=== PATIENT | female | born 1945 | race Caucasian/White ===

== ENCOUNTER 2020-01-01 14:23 | Outpatient (CLI) | payer MEDICARE, SELFPAY ==
--- NOTE | ~2020-01-01 | DEXA_ITS ---
Bone Density Report Name: Daisy Davey Age: 74 Sex: Female Ethnicity: White Date of : 1945 Indication: postmenopausal; height loss; hysterectomy; Referring Provider: KAN SINGH Study: Bone densitometry was performed. Exam Date: January 01, 2020 Accession number: [id number] Bone Density: Region BMD T-score Z-score Classification AP Spine (L1, L4) 0.941 -0.9 1.6 Normal Femoral Neck (Left) 0.623 -2.0 0.1 Osteopenia Total Hip (Left) 0.841 -0.8 1.0 Normal Total Hip Bilateral Avg 0.809 -1.1 0.8 Osteopenia Femoral Neck (Right) 0.650 -1.8 0.3 Osteopenia Total Hip (Right) 0.776 -1.4 0.5 Osteopenia World Health Organization criteria for BMD impression classify patients as: Normal (T-score at or above -1.0), Osteopenia (T-score between -1.0 and -2.5), or Osteoporosis (T-score at or below -2.5). 10-year Fracture Risk(1): Major Osteoporotic Fracture 13% Hip Fracture 3.5% Reported Risk Factors: [place] (), Neck BMD=0.623, BMI=31.4 (1) FRAX(R) Version 3.08. Fracture probability calculated for an untreated patient. Fracture probability may be lower if the patient has received treatment. Previous Exams: Region Exam Age BMD T-score BMD Change BMD Change Date g/cm2 vs Baseline vs Previous AP Spine(L1, L4) 01/01/2020 74 0.941 -0.9 -0.084(-8.2%)# -0.068(-6.7%)# 06/03/2010 64 1.009 -0.3 -0.016(-1.6%) -0.016(-1.6%) 05/15/2008 62 1.025 -0.1 Total Hip(Left) 01/01/2020 74 0.841 -0.8 -0.093(-10.0%) -0.039(-4.4%)# 06/03/2010 64 0.880 -0.5 -0.055(-5.9%)* -0.055(-5.9%)* 05/15/2008 62 0.934 -0.1 Total Hip(Right) 01/01/2020 74 0.776 -1.4 -0.131(-14.5%) -0.086(-10.0%) 06/03/2010 64 0.861 -0.7 -0.046(-5.0%)* -0.046(-5.0%)* 05/15/2008 62 0.907 -0.3 *Denotes significance at 95% confidence level, LSC for AP Spine = 0.022 g/cm2, LSC for Total Hip = 0.027 g/cm2 Clinical Information Provided by Patient: Has the following medical conditions: Hysterectomy Patient maximum height was 62 Menopause Age: 48 Onset of menses at age 11 Number of children 6 Impression: The patient has low bone mass, based on the Left Femoral Neck T-score. The patient has an estimated ten-year risk of hip fracture of 3.5% and an estimated ten-year risk of major fracture of 13%, based on the WHO FRAX algorithm. No significant bone loss was observed. Discussion: BONE DENSITY IS LOW AT ONE OR MORE SKELETAL SITES. THE PATIENT'S
== END 2020-01-01 14:24 | disposition home or self-care (01) ==
LOC: ANHIMG 14:26
PROVIDERS: PCP Internal Medicine; Visit Provider Internal Medicine
DX: Z78.0 Asymptomatic menopausal state (principal); M85.852 Other specified disorders of bone density and structure, left thigh; M85.851 Other specified disorders of bone density and structure, right thigh
CPT/HCPCS: 77080

== ENCOUNTER 2020-05-17 21:01 | Emergency (ER) | payer MEDICARE, SELFPAY ==
--- NOTE | ~2020-05-17 | XR_ITS ---
EXAMINATION: XR hip RT 2V w AP pelvis DATE: 05/17/2020 21:26 INDICATION: Posterior right hip pain TECHNIQUE: Anteroposterior view of the pelvis and anteroposterior and frog-leg lateral views of the r ight hip were obtained. COMPARISON: CT abdomen and pelvis dated 01/25/2011 FINDINGS: Alignment is normal. No fracture or suspected avascular necrosis. Mild bilateral hip osteoarthritis. Moderate lumbar spondylosis with anterior and posterior fusion at L4-L5. IMPRESSION: 1. Mild bilateral hip osteoarthritis. No acute osseous abnormality. Reviewed, dictated and finalized at location A.
[2020-05-17 21:04] VITALS: PULSE 57; RESP 16; TEMP 36.8; O2SAT 99
--- NOTE | 2020-05-17 21:51 | ED.LOWEXIN ---
HPI - Extremity Injury (Lower) General Chief Complaint: Extremity Injury, Lower Stated Complaint: right hip pain Time Seen by Provider: 05/17/20 21:13 History of Present Illness HPI Narrative: Patient presents to the ER via her for right hip pain. She frequently has right hip pain and takes Aleve for that. Tolu she was sitting on her phone when her right hip pain became severe to the point that she could not get up with it. She said the pain was 8 out of 10. She said the pain is now 2-3 out of 10, but still has difficulty rising from the chair. She has an orthopedic surgeon that replaced her right knee, when the arthritis became [id number]. She has not been sick recently no fever cough cold or chills. Does not smoke drink alcohol or do drugs. Surgical history includes right knee replacement. Related Data Home Medications Medication Instructions Recorded Confirmed alendronate 70 mg tablet 70 mg PO WEEKLY 04/16/20 04/16/20 calcium carbonate 500 mg calcium 1,000 mg PO DAILY tablet 04/16/20 (1,250 mg) tablet cholecalciferol (vitamin D3) 25 25 mcg PO DAILY 05/14/20 mcg (1,000 unit) capsule Allergies Allergy/AdvReac Type Severity Reaction Status Date / Time Cephalosporins Allergy Severe RASH, Verified 05/17/20 21:50 ITCHEY Sulfa (Sulfonamide Allergy Severe RASH, DIFF Verified 05/17/20 21:50 Antibiotics) BREATHING sulfamethoxazole Allergy Severe RASH, DIFF Verified 05/17/20 21:50 BREATHING clindamycin Allergy Unknown Unknown Verified 05/17/20 21:50 metronidazole Allergy Unknown Unknown Verified 05/17/20 21:50 sulfamethizole Allergy Unknown Unknown Verified 05/17/20 21:50 sulfanilamide Allergy Unknown Unknown Verified 05/17/20 21:50 trimethoprim Allergy Unknown Unknown Verified 05/17/20 21:50 Review of Systems Review of Systems: Narrative: CONSTITUTIONAL: Denies fever, chills, or sweats. EYES: Denies visual changes, redness, or discharge. ENT: Denies rhinorrhea, congestion, sore throat, or otalgia. CARDIOVASCULAR: Denies chest pain, palpitations, or edema. RESPIRATORY: Denies cough or dyspnea. GASTROINTESTINAL: Denies abdominal pain, nausea, vomiting, or diarrhea. GENITOURINARY: Denies dysuria or hematuria. SKIN: Denies rash or itching. MUSCULOSKELETAL: Denies back pain, but has right hip pain NEUROLOGIC: Denies headache, numbness, or weakness. . PMFSH Past Medical History Medical History (Updated 05/17/20 @ 21:55 by Agatha Giraldo MD) Osteoarthritis Surgical History Surgical History (Updated 05/17/20 @ 21:54 by Agatha Giraldo MD) History of right knee joint replacement Family History Family History (Updated 02/10/17 @ 23:56 by DOCTOR UNKNOWN) Mother Family history of osteoporosis Family history of malignant neoplasm of thyroid Family history of heart disease in male family member before age 55 Family history of congestive heart failure, Onset Age: 79 Patient's mother is Grandparent Family history of congestive heart failure Diabetes mellitus Sibling Patient's brother is in good health Family history of hypothyroidism Father Family history of lung cancer, Onset Age: 80 Patient's father is Social History Social History (Updated 05/17/20 @ 21:54 by Agatha Giraldo MD) Smoking status: Never smoker Alcohol intake: never Substance use: never Exam Narrative: Exam Narrative: GENERAL: Well-appearing, well-nourished, and in no acute distress. Pain with sitting and getting up. HEAD: Normocephalic, atraumatic. EYES: PERRLA and EOMI. ENT: Nares clear, no rhinorrhea or epistaxis. Mucous membranes moist. NECK: Supple. CHEST: Clear to auscultation. No respiratory distress. HEART: Regular rate and rhythm. No murmur heard. Normal peripheral pulses. ABDOMEN: Soft, nontender, nondistended, normal active bowel sounds. EXTREMITIES: Normal range of motion. No edema. SKIN: Warm, dry, no rash. NEURO: No focal deficits.
[2020-05-17 21:53] VITALS: BP 139/64; PULSE 62; RESP 18; TEMP 36.4; O2SAT 99
[2020-05-17] MEDS: oxyCODONE/ACETAMINOPHEN 5-325 MG TABLET 1 TABLET PO (22:19)
== END 2020-05-17 22:22 | disposition home or self-care (01) ==
PROVIDERS: Emergency Provider Emergency Medicine; PCP Internal Medicine
DX: M16.11 Unilateral primary osteoarthritis, right hip (principal); Z96.651 Presence of right artificial knee joint
CPT/HCPCS: 73502; 99283; A9270

== ENCOUNTER 2020-07-20 09:22 | Outpatient (CLI) | payer MEDICARE, SELFPAY ==
[2020-07-20 10:49] LABS: Cholesterol 151 mg/dL (0-200); HDL Direct 56 mg/dL; Triglycerides 99 mg/dL (<150)
[2020-07-20 11:00] LABS: LDL Cholesterol Direct 74 mg/dL
[2020-07-20 11:03] LABS: Free T4 Free Thyroxine 1.27 ng/mL (0.78-2.19)
== END 2020-07-20 09:23 | disposition home or self-care (01) ==
PROVIDERS: PCP Internal Medicine; Referring Provider Internal Medicine Endocrinology, Diabetes & Metabolism; Visit Provider Internal Medicine
DX: E78.5 Hyperlipidemia, unspecified (principal); E03.9 Hypothyroidism, unspecified
CPT/HCPCS: 36415; 80061; 84439; 84443

== ENCOUNTER 2020-11-25 09:22 | Outpatient (CLI) | payer MEDICARE, SELFPAY ==
[2020-11-25 09:52] LABS: Basophils Absolute Auto 0.1 K/mm3 (0.0-0.1); Basophils Percent Auto 1.3 % (0.2-1.2); Eosinophils Absolute Auto 0.8 K/mm3 (0-0.3); Eosinophils Percent Auto 9.9 % (0-4.4); Hematocrit 41.6 % (37.0-47.0); Hemoglobin 14.1 g/dL (12.0-15.0); Immature Granulocyte Absolute 0.01 K/mm3 (0.00-0.031); Immature Granulocyte Percent A 0.1 % (0-0.5); Lymphocytes Absolute Auto 2.41 K/mm3 (0.9-3.2); Lymphocytes Percent Auto 31.4 % (18.3-44.2); Mean Corpuscular HGB Conc 33.9 g/dl (32-36); Mean Corpuscular Hemoglobin 30.4 pg (26-34); Mean Corpuscular Volume 89.7 fl (80-100); Mean Platelet Volume 10.5 fl (7.4-10.4); Monocytes Absolute Auto 0.6 K/mm3 (0.1-0.6); Monocytes Percent Auto 8.2 % (2.6-8.5); Neutrophils Absolute Auto 3.8 K/mm3 (1.3-6.7); Neutrophils Percent Auto 49.1 % (45.5-73.1); Platelet Count Result 195 k/mm3 (150-375); Red Blood Count 4.64 M/mm3 (4.2-5.4); Red Cell Distribution Width 12.9 % (11.5-14.5); White Blood Count 7.7 K/mm3 (4.5-10.0)
[2020-11-25 10:06] LABS: Alanine Aminotransferase 23 U/L (4-35); Albumin Level 3.9 g/dL (3.5-5.1); Alkaline Phosphatase 65 U/L (38-126); Anion Gap 4 mmol/L (8-16); Aspartate Amino Transferase 27 U/L (14-36); Bilirubin,Total 0.8 mg/dL (0.2-1.3); Blood Urea Nitrogen 13 mg/dL (7-17); Calcium 9.7 mg/dL (8.4-10.2); Carbon Dioxide 29 mmol/L (22-30); Chloride 106 mmol/L (98-107); Estimated Glomerular Filt Rate > 60; Glucose 102 mg/dL (65-105); Potassium 4.1 mmol/L (3.4-5.0); Sodium 139 mmol/L (137-145)
[2020-11-25 10:08] LABS: Hemoglobin A1C 5.5 % (<5.7)
[2020-11-25 10:25] LABS: Creatinine Urine 149.4 mg/dL
[2020-11-25 10:31] LABS: MALB Creatinine Ratio 5.4 mg/g (0-30)
[2020-11-25 10:42] LABS: Vitamin D 25 Hydroxy 57.5 ng/mL
== END 2020-11-25 09:23 | disposition home or self-care (01) ==
PROVIDERS: Family Provider Internal Medicine; PCP Internal Medicine; Visit Provider Internal Medicine
DX: E03.9 Hypothyroidism, unspecified (principal); E78.2 Mixed hyperlipidemia; I10 Essential (primary) hypertension; E11.9 Type 2 diabetes mellitus without complications; E55.9 Vitamin D deficiency, unspecified
CPT/HCPCS: 36415; 80053; 82043; 82306; 83036; 84443; 85025

== ENCOUNTER 2021-03-31 08:13 | Outpatient (CLI) | payer MEDICARE, SELFPAY ==
[2021-03-31 09:27] LABS: Hemoglobin A1C 5.7 % (<5.7)
== END 2021-03-31 08:14 | disposition home or self-care (01) ==
PROVIDERS: PCP Internal Medicine; Visit Provider Internal Medicine
DX: E11.9 Type 2 diabetes mellitus without complications (principal)
CPT/HCPCS: 36415; 83036

== ENCOUNTER 2021-06-29 17:20 | Outpatient (CLI) | payer MEDICARE, SELFPAY ==
--- NOTE | ~2021-06-29 | MM_ITS ---
EXAMINATION: MM screening [facility] BI w jey HISTORY: Screening mammogram TECHNIQUE: Craniocaudal and mediolateral oblique 3-D tomosynthesis images were obtained and synthetic 2-D images were generated. CAD analysis was submitted and interpreted. COMPARISON: 11/27/2019, 11/07/2018, 05/24/2017 BREAST PARENCHYMAL COMPOSITION: There are scattered areas of fibroglandular density. FINDINGS: There is no evidence of suspicious mass, calcification, or architectural distortion to sugg est malignancy in either breast. There has been no suspicious interval change. IMPRESSION: 1. No mammographic evidence of malignancy. 2. Recommend routine screening mammography in one year. BI-RADS Category 1: Negative Reviewed, dictated and finalized at location A.
== END 2021-06-29 17:21 | disposition home or self-care (01) ==
PROVIDERS: PCP Internal Medicine; Visit Provider Internal Medicine
DX: Z12.31 Encounter for screening mammogram for malignant neoplasm of breast (principal)
CPT/HCPCS: 77063; 77067

== ENCOUNTER 2021-07-21 09:07 | Outpatient (CLI) | payer MEDICARE, SELFPAY ==
[2021-07-21 10:17] LABS: Anion Gap 10 mmol/L (8-16); Blood Urea Nitrogen 10 mg/dL (7-17); Calcium 9.5 mg/dL (8.4-10.2); Carbon Dioxide 23 mmol/L (22-30); Chloride 108 mmol/L (98-107); Estimated Glomerular Filt Rate > 60; Glucose 131 mg/dL (65-110); Sodium 141 mmol/L (137-145)
[2021-07-21 10:44] LABS: Creatinine Urine 320.9 mg/dL
[2021-07-21 10:47] LABS: MALB Creatinine Ratio 5.6 mg/g (0-30); Microalbumin Urine Random 17.9 mg/L (0-16.7)
== END 2021-07-21 09:08 | disposition home or self-care (01) ==
LOC: ANHLAB 09:10
PROVIDERS: PCP Internal Medicine; Visit Provider Internal Medicine
DX: E11.9 Type 2 diabetes mellitus without complications (principal)
CPT/HCPCS: 36415; 80048; 82043; 83036

== ENCOUNTER 2021-10-29 22:54 | Emergency (ER) | payer MEDICARE, SELFPAY ==
[2021-10-29 23:01] VITALS: PULSE 60; RESP 18; TEMP 36.4; O2SAT 95
[2021-10-30] VITALS: BP 148/69; PULSE 58; RESP 18; O2SAT 97
[2021-10-30] MEDS: KETOROLAC 15 MG/ML VIAL (*BKC) IV PUSH
[2021-10-30] MEDS: diazePAM INJ (*CRX) 10 MG/2 ML SYRINGE 5 MG IV PUSH (00:01)
[2021-10-30 00:51] VITALS: BP 142/68; PULSE 59; RESP 14; O2SAT 97
--- NOTE | 2021-10-30 01:02 | ED.GENADULT ---
HPI - General Adult General Chief complaint: Headache Stated complaint: Neck pain and headache Time Seen by Provider: 10/29/21 23:10 History of Present Illness HPI narrative: Patient is a 76-year-old female who presents ER with left-sided neck pain. Radiates into her left arm. Worse with turning her head and with palpation. She has been taking Aleve at home. She reports she had previously used a TENS unit and applied icy hot. Pain increased over the last day. No lower extremity numbness or tingling. No difficulty with urination or defecation. No known trauma. Associated with some mild headache. Related Data Home Medications Medication Instructions Recorded Confirmed calcium carbonate 500 mg calcium 1,000 mg PO DAILY tablet 04/16/20 06/24/21 (1,250 mg) tablet cholecalciferol (vitamin D3) 25 25 mcg PO DAILY 05/14/20 06/24/21 mcg (1,000 unit) capsule aspirin 81 mg tablet,delayed 81 mg PO DAILY 12/02/20 06/24/21 release cranberry 500 mg capsule 500 mg PO DAILY cap 12/02/20 06/24/21 Allergies Allergy/AdvReac Type Severity Reaction Status Date / Time Cephalosporins Allergy Severe RASH, Verified 10/29/21 23:20 ITCHEY Sulfa (Sulfonamide Allergy Severe RASH, DIFF Verified 10/29/21 23:20 Antibiotics) BREATHING sulfamethoxazole Allergy Severe RASH, DIFF Verified 10/29/21 23:20 BREATHING clindamycin Allergy Unknown Itching Verified 10/29/21 23:20 metronidazole Allergy Unknown Itching Verified 10/29/21 23:20 sulfamethizole Allergy Unknown Itching Verified 10/29/21 23:20 sulfanilamide Allergy Unknown Itching Verified 10/29/21 23:20 trimethoprim Allergy Unknown Itching Verified 10/29/21 23:20 Review of Systems Review of Systems: All systems reviewed & are unremarkable except as noted in HPI and below Constitutional: Constitutional: Denies chills, Denies fever(s) and Denies weakness Gastrointestinal: Gastrointestinal: Denies abdominal pain, Denies nausea and Denies vomiting Musculoskeletal: Musculoskeletal: Denies arthralgias, Denies joint swelling and Reports muscle cramps Integumentary/Breasts: Skin/Breast: Denies erythema and Denies rash Neurologic: Reports headache(s), Denies focal weakness and Denies numbness PMF Past Medical History Medical History Acute cystitis without hematuria Adverse effect of hfcrblaxspj-rmotdpjuvk-uzvixt inhibitors, initial encounter Chest pain, unspecified Chronic pain of right knee History of carpal tunnel syndrome Hx of Blas's palsy Insomnia Left hand pain Left wrist pain Memory change Numbness in both hands 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 Osteoarthritis Right hand pain Right wrist pain Scapholunate dissociation of right wrist Seasonal allergies Varicose veins of left lower extremity with inflammation Venous stasis dermatitis of both lower extremities Vitamin D deficiency, unspecified Surgical History Surgical History History of right knee joint replacement Status post trigger finger release Family History Family History Mother Family history of osteoporosis Family history of malignant neoplasm of thyroid Family history of heart disease in male family member before age 55 Family history of congestive heart failure, Onset Age: 79 Patient's mother is Grandparent Family history of congestive heart failure Diabetes mellitus Sibling Patient's brother is in good health Family history of hypothyroidism Father Family history of lung cancer, Onset Age: 80 Patient's father is Social History Social History (Updated 06/24/21 @ 13:03 by Estefany Carlson CNA) Smoking status: Never smoker Second hand tobacco smoke exposure: No Alcohol intake: never Substance use: never Exam Narrative: GENERAL: Well-appearing, well-nourished, and in
[2021-10-30 01:45] VITALS: BP 149/66; PULSE 57; RESP 13; O2SAT 97
== END 2021-10-30 01:49 | disposition home or self-care (01) ==
PROVIDERS: Emergency Provider Emergency Medicine; PCP Internal Medicine
DX: S16.1XXA Strain of muscle, fascia and tendon at neck level, initial encounter (principal); Z79.82 Long term (current) use of aspirin; X58.XXXA Exposure to other specified factors, initial encounter
CPT/HCPCS: 96374; 96375; 99284; J1885; J3360

== ENCOUNTER 2022-02-28 08:35 | Outpatient (CLI) | payer MEDICARE, SELFPAY ==
[2022-02-28 09:00] LABS: Basophils Absolute Auto 0.1 K/mm3 (0.0-0.1); Basophils Percent Auto 1.6 % (0.2-1.2); Eosinophils Absolute Auto 0.7 K/mm3 (0-0.3); Eosinophils Percent Auto 9.6 % (0-4.4); Hematocrit 42.7 % (37.0-47.0); Hemoglobin 14.5 g/dL (12.0-15.0); Immature Granulocyte Absolute 0.02 K/mm3 (0.00-0.031); Immature Granulocyte Percent A 0.3 % (0-0.5); Lymphocytes Absolute Auto 1.87 K/mm3 (0.9-3.2); Lymphocytes Percent Auto 26.9 % (18.3-44.2); Mean Corpuscular Hemoglobin 30.7 pg (26-34); Mean Corpuscular Volume 90.3 fl (80-100); Mean Platelet Volume 10.4 fl (7.4-10.4); Monocytes Absolute Auto 0.5 K/mm3 (0.1-0.6); Monocytes Percent Auto 6.9 % (2.6-8.5); Neutrophils Absolute Auto 3.8 K/mm3 (1.3-6.7); Neutrophils Percent Auto 54.7 % (45.5-73.1); Platelet Count Result 188 k/mm3 (150-375); Red Blood Count 4.73 M/mm3 (4.2-5.4); Red Cell Distribution Width 13.1 % (11.5-14.5)
[2022-02-28 09:16] LABS: Alanine Aminotransferase 21 U/L (4-35); Albumin Level 4.4 g/dL (3.5-5.1); Alkaline Phosphatase 74 U/L (38-126); Anion Gap 5 mmol/L (8-16); Aspartate Amino Transferase 28 U/L (14-36); Bilirubin,Total 0.9 mg/dL (0.2-1.3); Blood Urea Nitrogen 14 mg/dL (7-17); Calcium 9.2 mg/dL (8.4-10.2); Carbon Dioxide 27 mmol/L (22-30); Chloride 108 mmol/L (98-107); Cholesterol 169 mg/dL (0-200); Estimated Glomerular Filt Rate > 60; Glucose 132 mg/dL (65-110); HDL Direct 53 mg/dL; Sodium 140 mmol/L (137-145); Triglycerides 108 mg/dL (<150)
[2022-02-28 09:20] LABS: Hemoglobin A1C 5.7 % (<5.7)
[2022-02-28 09:26] LABS: LDL Cholesterol Direct 85 mg/dL
[2022-02-28 10:11] LABS: Creatinine Urine 136.9 mg/dL
[2022-02-28 10:15] LABS: MALB Creatinine Ratio 9.4 mg/g (0-30); Microalbumin Urine Random 12.9 mg/L (0-16.7)
[2022-02-28 10:25] LABS: Vitamin D 25 Hydroxy 39.8 ng/mL
== END 2022-02-28 08:36 | disposition home or self-care (01) ==
LOC: ANHLAB 08:41
PROVIDERS: PCP Internal Medicine; Visit Provider Internal Medicine
DX: E03.9 Hypothyroidism, unspecified (principal); E55.9 Vitamin D deficiency, unspecified; M81.0 Age-related osteoporosis without current pathological fracture; E78.2 Mixed hyperlipidemia; I10 Essential (primary) hypertension; E11.9 Type 2 diabetes mellitus without complications
CPT/HCPCS: 36415; 80053; 80061; 82043; 82306; 83036; 84443; 85025

== ENCOUNTER 2022-03-04 12:23 | Outpatient (CLI) | payer MEDICARE, SELFPAY ==
[2022-03-04 14:00] LABS: Free T4 Free Thyroxine 1.35 ng/mL (0.78-2.19)
== END 2022-03-04 12:24 | disposition home or self-care (01) ==
LOC: ANHLAB 12:24
PROVIDERS: PCP Internal Medicine; Visit Provider Internal Medicine
DX: E03.9 Hypothyroidism, unspecified (principal)
CPT/HCPCS: 36415; 84439; 84443

== ENCOUNTER 2022-03-16 14:51 | Outpatient (CLI) | payer MEDICARE, SELFPAY ==
--- NOTE | ~2022-03-16 | DEXA_ITS ---
Bone Density Report Name: SANDY ADDISON Age: 76 Sex: Female Ethnicity: White Date of : 1945 Indication: osteopenia; height loss; hysterectomy;postmenopausal Referring Provider: MANDEEP SWARTZ Study: Bone densitometry was performed. Exam Date: March 16, 2022 Accession number: [id number] Bone Density: Region BMD T-score Z-score Classification AP Spine(L1, L4) 1.008 -0.3 2.3 Normal Femoral Neck (Left) 0.666 -1.6 0.6 Osteopenia Total Hip (Left) 0.857 -0.7 1.3 Normal Femoral Neck (Right) 0.650 -1.8 0.4 Osteopenia Total Hip (Right) 0.792 -1.2 0.7 Osteopenia Total Hip Mean 0.825 -1.0 1.0 Normal World Health Organization criteria for BMD impression classify patients as: Normal (T-score at or above -1.0), Osteopenia (T-score between -1.0 and -2.5), or Osteoporosis (T-score at or below -2.5). 10-year Fracture Risk(1): Major Osteoporotic Fracture 13% Hip Fracture 3.1% Reported Risk Factors: [place] (), Neck BMD=0.650, BMI=33.4 (1) FRAX(R) Version 3.08. Fracture probability calculated for an untreated patient. Fracture probability may be lower if the patient has received treatment. Previous Exams: Region Exam Age BMD T-score BMD Change BMD Change Date g/cm2 vs Baseline vs Previous AP Spine (L1,L4) 03/16/2022 76 1.008 -0.3 0.066 (7.0%)* 0.066 (7.0%)* 01/01/2020 74 0.941 -0.9 Total Hip(Left) 03/16/2022 76 0.857 -0.7 0.016 (1.9%) 0.016 (1.9%) 01/01/2020 74 0.841 -0.8 Total Hip(Right) 03/16/2022 76 0.792 -1.2 0.016 (2.1%) 0.016 (2.1%) 01/01/2020 74 0.776 -1.4 *Denotes significance at 95% confidence level, LSC for AP Spine = 0.022 g/cm2, LSC for Total Hip = 0.027 g/cm2 Clinical Information Provided by Patient: Has used the following medications: Fosamax (i.e. alendronate) Has the following medical conditions: Hysterectomy Patient maximum height was 62 Menopause Age: 38 Drinks caffeinated beverages Onset of menses at age 11 Number of children 6 Impression: The patient has low bone mass, based on the Right Femoral Neck T-score. The patient has an estimated ten-year risk of hip fracture of 3.1% and an estimated ten-year risk of major fracture of 13%, based on the WHO FRAX algorithm. No significant bone loss was observed. Discussion: BONE DENSITY IS LOW AT ONE OR MORE SKELETAL SITES. THE PATIENT'S BMD AND CLINICAL RISK FACTORS CONTRIBUTE TO THIS PATIENT'S INCREASED RISK OF FRACTURE.
== END 2022-03-16 14:52 | disposition home or self-care (01) ==
LOC: ANHIMG 14:52
PROVIDERS: PCP Internal Medicine; Visit Provider Internal Medicine Endocrinology, Diabetes & Metabolism
DX: M81.0 Age-related osteoporosis without current pathological fracture (principal); M85.89 Other specified disorders of bone density and structure, multiple sites
CPT/HCPCS: 77080

== ENCOUNTER 2022-04-19 13:37 | Outpatient (CLI) | payer MEDICARE, SELFPAY ==
[2022-04-19 15:37] LABS: Free T4 Free Thyroxine 1.87 ng/mL (0.78-2.19)
[2022-04-19 15:49] LABS: Thyroid Stimulating Hormone 0.465 uIU/mL (0.465-4.680)
== END 2022-04-19 13:38 | disposition home or self-care (01) ==
LOC: ANHWCLAB 13:39
PROVIDERS: PCP Internal Medicine; Visit Provider Internal Medicine Endocrinology, Diabetes & Metabolism
DX: E03.9 Hypothyroidism, unspecified (principal)
CPT/HCPCS: 36415; 84439; 84443

== ENCOUNTER 2022-09-16 08:28 | Outpatient (CLI) | payer MEDICARE, SELFPAY ==
--- NOTE | ~2022-09-16 | MM_ITS ---
EXAMINATION: MM screening [facility] BI w jey HISTORY: Screening mammogram TECHNIQUE: Craniocaudal and mediolateral oblique 3-D tomosynthesis images were obtained and synthetic 2-D images were generated. CAD analysis was submitted and interpreted. COMPARISON: 06/25/2021, 11/27/2019, 11/07/2018 bilateral screening mammogram examinations BREAST PARENCHYMAL COMPOSITION: There are scattered areas of fibroglandular density. FINDINGS: There is no evidence of suspicious mass, calcification, or architectural distortion to sugg est malignancy in either breast. There has been no suspicious interval change. IMPRESSION: 1. No mammographic evidence of malignancy. 2. Recommend routine screening mammography in one year. BI-RADS Category 1: Negative Reviewed, dictated and finalized at location A. 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
[2022-09-16 09:12] LABS: Hemoglobin A1C 6.3 % (<5.7)
[2022-09-16 09:18] LABS: Alanine Aminotransferase 24 U/L (6-35); Albumin Level 4.3 g/dL (3.5-5.1); Alkaline Phosphatase 98 U/L (38-126); Anion Gap 9 mmol/L (8-16); Aspartate Amino Transferase 26 U/L (14-36); Bilirubin,Total 0.8 mg/dL (0.2-1.3); Blood Urea Nitrogen 12 mg/dL (7-17); Calcium 9.4 mg/dL (8.4-10.2); Carbon Dioxide 26 mmol/L (22-30); Chloride 104 mmol/L (98-107); Cholesterol 169 mg/dL (0-200); Estimated Glomerular Filt Rate > 60; Glucose 125 mg/dL (65-110); HDL Direct 49 mg/dL; Potassium 4.2 mmol/L (3.4-5.0); Sodium 139 mmol/L (137-145); Triglycerides 143 mg/dL (<150)
[2022-09-16 09:29] LABS: LDL Cholesterol Direct 98 mg/dL
[2022-09-16 09:46] LABS: Thyroid Stimulating Hormone Reflex 0.568 uIU/mL (0.465-4.68)
== END 2022-09-16 08:29 | disposition home or self-care (01) ==
PROVIDERS: PCP Family Medicine; Visit Provider Family Medicine
DX: Z12.31 Encounter for screening mammogram for malignant neoplasm of breast (principal); E11.9 Type 2 diabetes mellitus without complications; E03.9 Hypothyroidism, unspecified; E78.2 Mixed hyperlipidemia
CPT/HCPCS: 36415; 77063; 77067; 80053; 80061; 83036; 84443

== ENCOUNTER 2023-04-04 09:08 | Outpatient (CLI) | payer MEDICARE, SELFPAY ==
[2023-04-04 09:31] LABS: Hematocrit 42.8 % (37.0-47.0); Hemoglobin 14.3 g/dL (12.0-15.0); Mean Corpuscular HGB Conc 33.4 g/dl (32-36); Mean Corpuscular Hemoglobin 29.5 pg (26-34); Mean Corpuscular Volume 88.4 fl (80-100); Platelet Count Result 187 k/mm3 (150-375); Red Blood Count 4.84 M/mm3 (4.2-5.4); Red Cell Distribution Width 13.6 % (11.5-14.5); White Blood Count 7.3 K/mm3 (4.5-10.0)
[2023-04-04 09:45] LABS: Alanine Aminotransferase 24 U/L (6-35); Albumin Level 4.3 g/dL (3.5-5.1); Alkaline Phosphatase 96 U/L (38-126); Anion Gap 6 mmol/L (8-16); Aspartate Amino Transferase 25 U/L (14-36); Bilirubin,Total 0.9 mg/dL (0.2-1.3); Blood Urea Nitrogen 19 mg/dL (7-17); Calcium 9.1 mg/dL (8.4-10.2); Carbon Dioxide 27 mmol/L (22-30); Chloride 103 mmol/L (98-107); Cholesterol 148 mg/dL (0-200); Estimated Glomerular Filt Rate > 60; Glucose 133 mg/dL (65-110); HDL Direct 48 mg/dL; Sodium 136 mmol/L (137-145); Triglycerides 151 mg/dL (<150)
[2023-04-04 09:55] LABS: LDL Cholesterol Direct 82 mg/dL
[2023-04-04 10:07] LABS: Hemoglobin A1C 6.1 % (<5.7)
== END 2023-04-04 09:09 | disposition home or self-care (01) ==
LOC: ANHLAB 09:10
PROVIDERS: PCP Family Medicine; Visit Provider Family Medicine
DX: E78.2 Mixed hyperlipidemia (principal); E11.9 Type 2 diabetes mellitus without complications; R53.83 Other fatigue
CPT/HCPCS: 36415; 80053; 80061; 83036; 84443; 85027

== ENCOUNTER 2023-08-08 09:47 | Outpatient (CLI) | payer MEDICARE, SELFPAY ==
[2023-08-08 17:42] LABS: Vitamin D 25 Hydroxy 65.9 ng/mL
[2023-08-08 17:44] LABS: Albumin Level 4.5 g/dL (3.5-5.1); Anion Gap 7 mmol/L (8-16); Blood Urea Nitrogen 15 mg/dL (7-17); Calcium 9.8 mg/dL (8.4-10.2); Carbon Dioxide 28 mmol/L (22-30); Chloride 103 mmol/L (98-107); Estimated Glomerular Filt Rate > 60; Glucose 117 mg/dL (65-110); Phosphorus 3.4 mg/dL (2.5-4.5); Sodium 138 mmol/L (137-145)
== END 2023-08-08 09:48 | disposition home or self-care (01) ==
LOC: ANHWCLAB 09:50
PROVIDERS: PCP Family Medicine; Visit Provider Internal Medicine Endocrinology, Diabetes & Metabolism
DX: E03.9 Hypothyroidism, unspecified (principal); E55.9 Vitamin D deficiency, unspecified; M81.0 Age-related osteoporosis without current pathological fracture
CPT/HCPCS: 36415; 80069; 82306; 84439; 84443

== ENCOUNTER 2023-11-10 13:25 | Outpatient (CLI) | payer MEDICARE, SELFPAY ==
--- NOTE | ~2023-11-10 | DEXA_ITS ---
Bone Density Report Name: SANDY ADDISON Age: 78 Sex: Female Ethnicity: White Date of : 1945 Indication: postmenopausal; screening for osteoporosis; height loss; hysterectomy; Referring Provider: Myrna Rodriguez Study: Bone densitometry was performed. Exam Date: November 10, 2023 Accession number: [id number] Bone Density: Region BMD T-score Z-score Classification AP Spine(L1-L4) 1.136 0.8 3.5 Normal Femoral Neck (Left) 0.691 -1.4 0.9 Osteopenia Total Hip (Left) 0.827 -0.9 1.1 Normal Femoral Neck (Right) 0.649 -1.8 0.5 Osteopenia Total Hip (Right) 0.823 -1.0 1.1 Normal Femoral Neck Mean 0.670 -1.6 0.7 Osteopenia Total Hip Mean 0.825 -1.0 1.1 Normal World Health Organization criteria for BMD impression classify patients as: Normal (T-score at or above -1.0), Osteopenia (T-score between -1.0 and -2.5), or Osteoporosis (T-score at or below -2.5). 10-year Fracture Risk: FRAX not reported because: Treated for osteoporosis Clinical Information Provided by Patient: Is being treated for osteoporosis Has used the following medications: Fosamax (i.e. alendronate) Has the following medical conditions: Hysterectomy Patient maximum height was 62 Menopause Age: 43 No regular weight bearing exercise Drinks caffeinated beverages Onset of menses at age 11 Number of children 6 Impression: The patient has low bone mass, based on the Right Femoral Neck T-score. Discussion: It is important to ask patients whether they are taking their medications and to encourage continued and appropriate compliance with their osteoporosis therapies to reduce fracture risk. It is also important to review their risk factors and encourage appropriate calcium and vitamin D intakes, exercise, fall prevention and other lifestyle measures. Follow-Up: Consider a repeat BMD and Vertebral Fracture Assessment (VFA) exam in 2 years or sooner if medically necessary, to reassess this patient's status. Reported by: Dr. Rudy Krishnamurthy on 11/13/2023 2:33:00 PM. Reviewed, dictated and finalized at location A.
--- NOTE | ~2023-11-10 | MM_ITS ---
EXAMINATION: MM screening [facility] BI w jey HISTORY: Screening mammogram TECHNIQUE: Craniocaudal and mediolateral oblique 3-D tomosynthesis images were obtained and synthetic 2-D images were generated. CAD analysis was submitted and interpreted. COMPARISON: 09/16/2022, 06/29/2021, 11/27/2019 BREAST PARENCHYMAL COMPOSITION: There are scattered areas of fibroglandular density. FINDINGS: No suspicious mass, calcification, or architectural distortion are identified in either verito ast to suggest malignancy. There has been no suspicious interval change. IMPRESSION: 1. No mammographic evidence of malignancy. 2. Recommend routine screening mammography in one year. BI-RADS Category 1: Negative Reviewed, dictated and finalized at location A. 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
== END 2023-11-10 13:26 | disposition home or self-care (01) ==
LOC: CHSIMG 13:26
PROVIDERS: PCP Family Medicine; Visit Provider Internal Medicine Endocrinology, Diabetes & Metabolism
DX: Z12.31 Encounter for screening mammogram for malignant neoplasm of breast (principal); E03.9 Hypothyroidism, unspecified; Z78.0 Asymptomatic menopausal state; M85.89 Other specified disorders of bone density and structure, multiple sites
CPT/HCPCS: 77063; 77067; 77080

== ENCOUNTER 2024-02-14 08:41 | Outpatient (CLI) | payer MEDICARE, SELFPAY ==
[2024-02-14 09:53] LABS: Alanine Aminotransferase 20 U/L (6-35); Albumin Level 4.3 g/dL (3.5-5.1); Alkaline Phosphatase 87 U/L (38-126); Anion Gap 6 mmol/L (4-12); Aspartate Amino Transferase 24 U/L (14-36); Bilirubin,Total 1.1 mg/dL (0.2-1.3); Blood Urea Nitrogen 11 mg/dL (7-17); Calcium 9.3 mg/dL (8.4-10.2); Carbon Dioxide 26 mmol/L (22-30); Chloride 107 mmol/L (98-107); Cholesterol 153 mg/dL (0-200); Estimated Glomerular Filt Rate > 60; Glucose 140 mg/dL (65-110); HDL Direct 47 mg/dL; Potassium 3.9 mmol/L (3.4-5.0); Sodium 139 mmol/L (137-145); Triglycerides 116 mg/dL (<150)
[2024-02-14 10:04] LABS: LDL Cholesterol Direct 99 mg/dL
[2024-02-14 10:26] LABS: Thyroid Stimulating Hormone Reflex 0.502 uIU/mL (0.465-4.68)
[2024-02-14 11:00] LABS: Hemoglobin A1C 6.1 % (<5.7)
== END 2024-02-14 08:42 | disposition home or self-care (01) ==
PROVIDERS: PCP Family Medicine; Visit Provider Family Medicine
DX: E03.9 Hypothyroidism, unspecified (principal); E11.9 Type 2 diabetes mellitus without complications; E78.2 Mixed hyperlipidemia
CPT/HCPCS: 36415; 80053; 80061; 83036; 84443

== ENCOUNTER 2024-08-30 09:05 | Outpatient (CLI) | payer MEDICARE, SELFPAY ==
[2024-08-30 10:59] LABS: Thyroid Stimulating Hormone 0.979 uIU/mL (0.465-4.680)
[2024-08-30 11:07] LABS: Vitamin D 25 Hydroxy 52.9 ng/mL
== END 2024-08-30 09:06 | disposition home or self-care (01) ==
LOC: ANHLAB 09:06
PROVIDERS: PCP Family Medicine; Visit Provider Internal Medicine Endocrinology, Diabetes & Metabolism
DX: E55.9 Vitamin D deficiency, unspecified (principal); E03.9 Hypothyroidism, unspecified
CPT/HCPCS: 36415; 82306; 84439; 84443

== ENCOUNTER 2024-12-30 13:00 | Outpatient (CLI) | payer MEDICARE, SELFPAY ==
--- NOTE | ~2024-12-30 | MM_ITS ---
EXAMINATION: MM screening [facility] BI w jey HISTORY: Screening mammogram TECHNIQUE: Craniocaudal and mediolateral oblique 3-D tomosynthesis images were obtained and synthetic 2-D images were generated. CAD analysis was submitted and interpreted. COMPARISON: 11/10/2023, 09/16/2022, 06/29/2021 BREAST PARENCHYMAL COMPOSITION:Not Dense. There are scattered areas of fibroglandular density. FINDINGS: No suspicious mass, calcification, or architectural distortion are identified in either verito ast to suggest malignancy. There has been no suspicious interval change. IMPRESSION: No mammographic evidence of malignancy. Recommend routine screening mammography in one year. BI-RADS Category 1: Negative Reviewed, dictated and finalized at location . STRIAL HIRE SALES ASSISTANT
--- OUTSIDE RECORDS SUMMARY | 2024-12-30 14:46 | XMS_ITS | Continuity of Care Document ---
Author Name Auto Generated, Auto Generated Organization [facility] ices Summary Purpose Consult/Referral Allergies, Adverse Reactions, Alerts Type Description/Agent Code Date Allergy Active Date Allergy Inactivated Date of Last Reaction Adverse Reactions Severity Status Comments Source of Information FDB Medic ation Ingre dient clindamycin Active Patie nt History FDB Medic ation Ingre dient ciprofloxacin Active Pat ient History Medications No Known Medications Conditions/Problems No Known Problems Procedures No Known Procedures
--- OUTSIDE RECORDS SUMMARY | 2024-12-30 14:46 | XMS_ITS | Continuity of Care Document ---
Author Organization [facility] Address [address] [place] [address] Phone Care Team Providers Care Junior Project Manager Name Role Phone Ross GLORIA, Awais Unavailable Unavailable Advance Directives Directive Yes / No Effective Date File Name No Information Encounters Encounter Description Practice Location Reason(s) For Visit Diagnoses Date Provider Providers Copied on Encounter [facility], [address], [place], [place], [id number], [place] tel:[phone] [facility] No Information Ross Ernandez. [address] , [place], [place], [id number], [place]. tel:[phone] Family History Family Member Type Diagnosis Age At Onset No Information Payers Payer name Insurance type Covered libertarian ID Authoriza tion(s) No Information Social History Type Description Quantity Date Captured Comments Sex Female Smoking Status No Information Chief Complaint And Reason For Visit No Information Reason For Referral Reason For Referral No Information History Of Present Illness Encounter Date Complaint History Of Prese nt Illness No Information Functional Status Date Functional Assessmen t No Information Instructions Date Instruction Additional Infor mation No Information Assessments Type Assessment Date No Information Patient Care Teams Name Effective Dates (start - stop) Status Members No Information
--- OUTSIDE RECORDS SUMMARY | 2024-12-30 14:46 | XMS_ITS | Clinical Summary ---
Author Organization [facility] Address [address] [place] [address] Care Team Providers Care Railroad Worker Name Role Phone Mel Cristobal MD Primary Care Provider [phone] Allergies Active Allergy Reactions Criticality Noted Date Comments Ciprofloxacin Other (see comment) Low 11/21/2024 unknown Clindamycin Other (see comment) Low 11/21/2024 unknown Sulfa Antibiotics Shortness of Breath High 9 Sulfamethoxazole-Trimethoprim Shortness of Breath High 11/19/2018 rash Medications levothyroxine (SYNTHROID) 112 MCG tablet 11/24/2024 Active amLODIPine (NORVASC) 10 MG tablet Take 1 tablet (10 mg total) by mouth daily. 09/14/2024 Active metFORMIN (GLUCOPHAGE) 500 MG tablet Take 1 tablet (500 mg total) by mouth daily. 11/17/2024 Active pravastatin (PRAVACHOL) 40 MG tablet Take 1 tablet (40 mg total) by mouth daily. 10/19/2024 Active losartan (COZAAR) 100 MG tablet Take 1 tablet (100 mg total) by mouth daily. Active apixaban (ELIQUIS) 5 MG tablet Take 1 tablet (5 mg total) by mouth 2 (two) times daily. 180 tablet 3 11/27/2024 Active Active Problems Problem Noted Date Diagnosed Date Hypertension 03/22/2014 Overview (11/21/2024): HYPERTENSION NOS Hypothyroidism 03/22/2014 Overview (11/21/2024): HYPOTHYROIDISM NOS Hyperlipidemia Old ND (myocardial infarction) Encounters Date Type Department Care Team Description 12/26/2024 10:37 AM BIKE MECHANIC Anesthesia Event [facility] [employer] [place] [address] Tarah Lloyd MD Hunt, Lauren C, CRNA 12/26/2024 7:06 AM BIKE MECHANIC - 12/26/2024 12:15 PM BIKE MECHANIC Hospital Encounter [facility] [place] [address] Stephanie Fritz MD Portera Mankins, Sally B, MD Discharge Disposition: Home or Self Care (Routine Discharge) 12/26/2024 7:00 AM BIKE MECHANIC - 12/26/2024 7:04 AM BIKE MECHANIC Hospital Encounter [facility] [place] [address] Stephanie Fritz MD Discharge Disposition: Home or Self Care (Routine Discharge) 12/26/2024 Travel 11/27/2024 Telephone [facility] [address] [address] Lori Quiñonez PA-C Question 11/25/2024 10:15 AM BIKE MECHANIC Office Visit [facility] [address] [address] Stephanie Fritz MD Atrial Fibrillation (New Consult ) 11/25/2024 Travel from Last 3 Months Family History Medical History Relation Comments Stroke Maternal Grandfather CABG Mother Stroke Mother Stroke Paternal Grandmother pacemaker Sister Relation Status Comments Maternal Grandfather Mother Paternal Grandmother Sister Alive Social History Tobacco Use Types Packs/Day Years Used Date Smoking Tobacco: Never Smokeless Tobacco: Never Alcohol Use Standard Drinks/Week Comments Never 0 (1 standard drink = 0.6 oz pur e alcohol) Comments Unknown Sex and Gender Information Value Date Recorded Sex Assigned at Female 11/25/2024 9:48 AM BIKE MECHANIC Legal Sex Female 4:30 PM CDT Gender Identity Not on file Sexual Orientation Not on file Last Filed Vital Signs Vital Sign Reading Time Taken Comments Blood Pressure 116/85 12/26/2024 11:45 AM BIKE MECHANIC Pulse 61 12/26/2024 11:45 AM BIKE MECHANIC Temperature 36.6 C (97.8 F) 12/26/2024 8:15 AM BIKE MECHANIC Respiratory Rate 17 12/26/2024 11:45 AM BIKE MECHANIC Oxygen Saturation 95% 12/26/2024 11:45 AM BIKE MECHANIC Inhaled Oxygen Concentration - - Weight 75.8 kg (167 lb 1.7 oz) 12/26/2024 8:15 A M BIKE MECHANIC Height 152.4 cm (5') 12/26/2024 8:15 AM BIKE MECHANIC Body Mass Index 32.64 12/26/2024 8:15 AM BIKE MECHANIC Plan of Treatment Upcoming Encounters Date Type Department Care Team (Late st Contact Info) Description 01/31/2025 1:45 PM CDT Office Visit [facility] [address] [place], [place] [phone] Stephanie Fritz MD [facility]. [address] [place] [address] Health Maintenance Due Date Last Done Comments ASCVD LDL 1945 DTaP, Tdap and Td Vaccines (1 - Tdap) 1962 Zoster Vaccines (1 of 2) 1993 Annual Medicare Wellness Visit 2008 Dexa Scan (General) 2008 Pneumococcal Vaccine: 65+ Years (2 of 2 - PPSV23 or PCV20) 10/03/2017 08/08/2017 RSV Immunization or 60+ Years (1 - 1-dose 75+ series) 2018 COVID-19 Vaccine ( season) 2024 11/10/2021, 01/22/2021, 01/01/2021 Influenza Adult Completed 08/30/2024, 08/07, 09/15/2021, Additional history exists Meningococcal B Vaccine Aged Out No l onger eligible based on patient's age to complete this topic Meningococcal Vaccine Aged Out No nisha kathia eligible based on patient's age to complete this topic RSV Immunizations Under 20 Months Aged Out No longer eligible based on patient's age to complete this topic Procedures Procedure Name Priority Date/Time Associated Diagnosis Comments XA CARDIOVERSION DCC Routine 12/26/2024 11:10 AM BIKE MECHANIC Persistent atrial fibrillation (CMS/HCC HHS/HCC) ECG 12-LEAD Routine 12/26/2024 10:54 AM BIKE MECHANIC Persistent atrial fibrillation (CMS/HCC HHS/HCC) PROTHROMBIN TIME, VENOUS STAT 025 7:13 AM BIKE MECHANIC Persistent atrial fibrillation (CMS/HCC HHS/HCC) CBC W/DIFF AUTOMATED STAT 12/26/2024 7:13 AM BIKE MECHANIC Persistent atrial fibrillation (CMS/HCC HHS/HCC) BASIC METABOLIC PANEL STAT 12/26/2024 7:13 AM BIKE MECHANIC Persistent atrial fibrillation (CMS/HCC HHS/HCC) ELECTROCARDIOGRAM (NON MIDMARK ACQUIRED) Routine 11/25/2024 10:44 AM BIKE MECHANIC Persistent atrial fibrillation (CMS/HCC HHS/HCC) from Last 3 Months Results * XA CARDIOVERSION DCC (12/26/2024 11:10 AM BIKE MECHANIC) Anatomical Region Laterality Modality Cardiac Business Functional Analyst Narrative 12/26/2024 12:15 PM BIKE MECHANIC [facility] CARDIAC CATHETERIZATION/EP LAB [phone] x [id number] Cardioversion Patient Name: Daisy Addison Date of : 1945 Medical Record: #[id number] Account: #[id number] Physician: Stephanie Fritz MD Date: 12/26/2024 Procedure: #[id number] DIAGNOSIS: Atrial Fibrillation OPERATIVE NOTE: Under general anesthesia, in the presence of Dr. Fritz, the patient underwent synchronized cardioversion at 360 joules, biphasic, with successful cardioversion to normal sinus rhythm. Patient tolerated the procedure well. Estimated Blood Loss: None Specimens Removed: None Complications: None CONCLUSION: Successful cardioversion with 360 joules into normal sinus rhythm. Stephanie Fritz MD PS/vs Interpreted: 12/26/24 Transcribed: 12/26/24 us Stephanie Fritz MD ENTERPRISE MANAGER Final Result * ECG 12 lead (12/26/2024 10:54 AM BIKE MECHANIC) 12/26/2024 10:5 4 AM BIKE MECHANIC Narrative [facility] ([facility]) RAD - 12/26/2024 3:11 PM BIKE MECHANIC [facility] [address] [facility] Test Date: 2024-12-26 [facility] 40 Room: ODSPOOL Gender: Female Corrugated Fastener Driver: Brady : 1945 Requested By: STEPHANIE FRITZ Order Number: [id number] Reading MD: Arun Kim Measurements Intervals [place] Rate: 67 P: 70 KS: 267 QRS: -30 QRSD: 89 T: 61 QT: 403 QTc: 428 Interpretive Statements SINUS RHYTHM WITH FIRST DEGREE AV BLOCK WITH OCCASIONAL SUPRAVENTRICULAR PREMATURE COMPLEXES LEFT VENTRICULAR HYPERTROPHY AND ST-T CHANGE [VOLTAGE CRITERIA PLUS ST/T ABNORMALITY] POSSIBLE ANTERIOR MYOCARDIAL INFARCTION , OF INDETERMINATE AGE [30 ms Q WAVE IN V3/V4, OR R < 0.2 mV IN V4] Compared to ECG 11/25/2024 10:44:59 First degree AV block now present ST (T wave) deviation now present Atrial fibrillation no longer present Left-axis deviation no longer present MECHANIC Procedure Note Arun Kim MD - 12/26/2024 [facility] Test Date: 2024-12-26 Pat Name: [facility] Department: 40 Room: ODSPOOL Gender: Female Corrugated Fastener Driver: Brady : 1945 Requested By: STEPHANIE FRITZ Order Number: [id number] Reading : Arun Kim Measurements Intervals [place] Rate: 67 P: 70 KS: 267 QRS: -30 QRSD: 89 T: 61 QT: 403 QTc: 428 Interpretive Statements SINUS RHYTHM WITH FIRST DEGREE AV BLOCK WITH OCCASIONAL SUPRAVENTRICULAR PREMATURE COMPLEXES LEFT VENTRICULAR HYPERTROPHY AND ST-T CHANGE [VOLTAGE CRITERIA PLUSST/T ABNORMALITY] POSSIBLE ANTERIOR MYOCARDIAL INFARCTION , OF INDETERMINATE AGE [30 ms QWAVE IN V3/V4, OR R < 0.2 mV IN V4] Compared to ECG 11/25/2024 10:44:59 First degree AV block now present ST (T wave) deviation now present Atrial fibrillation no longer present Left-axis deviation no longer present MECHANIC Stephanie Fritz MD ECG ORDERABLES Final Result Performing Organization Address [facility]/ZIP Co de Phone Number [facility] ([facility]) RAD * (ABNORMAL) PROTIME/INR, VENOUS (12/26/2024 7:13 AM BIKE MECHANIC) PROTIME 16.8(H) 10.2 - 12.9 SEC 12/26/2024 7:[address] [facility] INR 1.5 12/26/2024 7:[address] [facility] Comment: Recommended INR Therapeutic Goals: 2.0-3.0 Routine Therapy 2.5-3.5 Mechanical Prosthetic Valves (High Risk) 12/26/2024 7:13 AM BIKE MECHANIC Stephanie Fritz MD LABORATORY Final Result Performing Organization Address City/[facility]/ZIP Co de Phone Number [facility] [address] [place] [address], [place] [phone] * (ABNORMAL) BASIC METABOLIC PANEL (12/26/2024 7:13 AM BIKE MECHANIC) GLUCOSE 121(H) 70 - 99 MG/DL 12/26/2024 7:[address] [facility] BUN 12 7 - 18 MG/DL 12/26/2024 7:[address] [facility] CREATININE S/P/B 0.79 0.55 - 1.02 MG/DL 12/26/2024 7:[address] [facility] SODIUM S/P/B 140 136 - 145 MMOL/L 12/26/2024 7:44 AM [facility] POTASSIUM S/P/B 3.6 3.5 - 5.1 MMOL/L 12/26/2024 7:44 AM [facility] CHLORIDE S/P/B 105 97 - 115 MMOL/L 12/26/2024 7:[address] [facility] CO2 29.3 21 - 32 MMOL/L 12/26/2024 7:44 AM [facility] CALCIUM S/P/B 9.7 8.5 - 10.1 MG/DL 12/26/2024 7:44 AM [facility] ANION GAP 5.7 2 - 10 MMOL/L 12/26/2024 7:44 AM [facility] BUN CREATININE RATIO 15.2 6 - 26 12/26/2024 7:44 AM [facility] GFR ESTIMATE 75(L) >90 ML/MIN/1.7 3 M2 12/26/2024 7:44 AM [facility] Comment: NOTE: eGFR is not calculated for patients <18 years of age or gender unknown. This is an estimated GFR calculation using the new CKD EPI creatinine equation without race and so does not require a correction factor for race. This estimated GFR should not be used for calculating drug doses. 12/26/2024 7:13 AM BIKE MECHANIC Stephanie Fritz MD LABORATORY Final Result [facility] [address] [place] [address], [place] [phone] * (ABNORMAL) CBC W/DIFF AUTOMATED (12/26/2024 7:13 AM BIKE MECHANIC) [facility] Signature WBC 8.06 4.5 - 11.0 x10'3/uL 12/26/2024 7:25 AM [facility] RBC 5.34 4.20 - 5.40 x10'6/uL 12/26/2024 7:25 AM [facility] HGB 15.7 12.0 - 16.0 G/DL 12/26/2024 7:25 AM [facility] HCT 46.7 38.0 - 48.0 % 12/26/2024 7:25 AM [facility] MCV 87.5 81.0 - 99.0 FL 12/26/2024 7:25 AM [facility] MCH 29.4 27.0 - 31.0 PG 12/26/2024 7:25 AM [facility] MCHC 33.6 32.0 - 36.0 G/DL 12/26/2024 7:25 AM [facility] RDW 13.7 11.5 - 14.5 % 12/26/2024 7:25 AM [facility] PLT 198 130 - 400 x10'3/uL 12/26/2024 7:25 AM [facility] MPV 10.2 9.3 - 12.2 FL 12/26/2024 7:25 AM [facility] DIFFERENTIAL TYPE AUTOMATED DIFFERENTIAL 12/26/2024 7:25 AM [facility] NEUTROPHILS % 50.3 % 12/26/2024 7:25 AM [facility] LYMPHOCYTES % 33.1 % 12/26/2024 7:25 AM [facility] MONOCYTES % 8.6 % 12/26/2024 7:25 AM [facility] EOSINOPHILS 6.6 % 12/26/2024 7:25 AM [facility] BASOPHILS 1.0 % 12/26/2024 7:25 AM [facility] IMMATURE GRANS % 0.4 % 12/26/19 7:25 AM [facility] ABS. NEUTROPHILS 4.06 1.80 - 7.70 x10'3/uL 12/26/2024 7:25 AM [facility] ABS. LYMPHOCYTES 2.67 1.00 - 4.80 x10'3/uL 12/26/2024 7:25 AM [facility] ABS. MONOCYTES 0.69 0.24 - 0.86 x10'3/uL 12/26/2024 7:25 AM [facility] ABS. EOSINOPHILS 0.53(H) 0.04 - 0.36 x10'3/uL 12/26/2024 7:25 AM [facility] ABS. BASOPHILS 0.08 0.01 - 0.08 x10'3/uL 12/26/2024 7:25 AM [facility] ABS. IMMATURE GRANULOCYTES 0.03 0.00 - 0.49 x10'3/uL 12/26/2024 7:25 AM [facility] 12/26/2024 7:13 AM BIKE MECHANIC us Stephanie Fritz MD LABORATORY Final Result [facility] [address] [place] [address], * ELECTROCARDIOGRAM (11/25/2024 10:44 AM BIKE MECHANIC) 11/25/2024 10:4 4 AM BIKE MECHANIC Elizabeth REYNOSO CARDIOVASCULAR - 12/06/2024 12:23 AM BIKE MECHANIC [facility]: [facility]24[facility]25 Pat Name: DAISY ADDISON Department: 112 Room: Gender: Female Corrugated Fastener Driver: : 1945 Requested By: STEPHANIE FRITZ Order Number: [id number] Reading GREGORY Fritz Measurements Intervals [place] Rate: 59 P: KS: 0 QRS: -34 QRSD: 77 T: 85 QT: 385 QTc: 382 Interpretive Statements ATRIAL FIBRILLATION WITH SLOW VENTRICULAR RESPONSE LEFT AXIS DEVIATION VOLTAGE CRITERIA FOR LVH POSSIBLE ANTERIOR MYOCARDIAL INFARCTION, OF INDETERMINATE AGE No prior ECG available for comparison MECHANIC Procedure Note Stephanie Fritz MD - 12/06/2024 [facility] Test Date: 2024-11-25 Pat Name: DAISY AZAEL Department: 112 Room: Gender: Female Corrugated Fastener Driver: : 1945 Requested By: STEPHANIE FRITZ Order Number: [id number] Reading MDJeny Fritz Measurements Intervals [place] Rate: 59 P: KS: 0 QRS: -34 QRSD: 77 T: 85 QT: 385 QTc: 382 Interpretive Statements ATRIAL FIBRILLATION WITH SLOW VENTRICULAR RESPONSE LEFT AXIS DEVIATION VOLTAGE CRITERIA FOR LVH POSSIBLE ANTERIOR MYOCARDIAL INFARCTION, OF INDETERMINATE AGE No prior ECG available for comparison MECHANIC us Stephanie Fritz MD PROCEDURES-ORDERABLE NO CHARGE F inal Result DEEPA HALLMAN from Last 3 Months Insurance [employer] Care Teams Railroad Worker Relationship Specialty Start Date End Date Mel Cristobal MD [address] [place], [place] [id number] PCP - General FAMILY PRACTICE 11/04/24
--- OUTSIDE RECORDS SUMMARY | 2024-12-30 14:46 | XMS_ITS | Clinical Summary ---
Author Organization [facility] [employer] Address [address] [address] Care Team Providers Care Automatic Developer Name Role Phone Unknown, Provider Primary Care Provider Unavaila ble Source Comments [facility],non-owned Affiliates and Associated Physician Practices is amultiple site organization consisting of ambulatory clinics and hospital sitesin [place], [place], [place] and [place]. This disclosure is being madepursuant to the Care Everywhere program and may not contain all information available regarding this patient. Last updated 18.[facility] Immunizations Name Administration Dates Next Due INFLUENZA VACCINE, HIGH-DOSE , QUADR. (FLUZONE HIGH-DOSE QUADRIVALENT; 65Y+), 0.7 ML (HD-IIV4) 09/15/2021 Social History Tobacco Use Types Packs/Day Years Used Date Smoking Tobacco: Never Assessed Sex and Gender Information Value Date Recorded Sex Assigned at Not on file Gender Identity Not on file Sexual Orientation Not on file Plan of Treatment Health Maintenance Due Date Last Done Comments BONE DENSITY TESTING 1945 DTAP/TDAP/TD VACCINES (1 - Tdap) 1962 PNEUMOCOCCAL VACCINE 50+ (1 of 1 - PCV) 1993 ZOSTER VACCINE (1 of 2) 1993 Respiratory Syncytial Virus (RSV) Vaccine Pt: or over 60 yrs (1 - 1-dose 75+ series) 2018 COVID-19 VACCINE (3 - 2023-2 5 season) 2024 01/22/2021, 01/01/2021 INFLUENZA VACCINE (#1) 2024 , 11/02/2012 DEPRESSION SCREENING 11/06/2024 HEPATITIS B VACCINE Aged Out No longe r eligible based on patient's age to complete this topic HIB VACCINE Aged Out No longer eligi ble based on patient's age to complete this topic HPV VACCINE Aged Out No longer eligi ble based on patient's age to complete this topic MENINGOCOCCAL (Group B) VACCINE Aged Out No longer eligible b ased on patient's age to complete this topic MENINGOCOCCAL VACCINE Aged Out No nisha kathia eligible based on patient's age to complete this topic Care Teams Automatic Developer Relationship Specialty Start Date End Date Unknown, Provider PCP - General 09/15/21
--- OUTSIDE RECORDS SUMMARY | 2024-12-30 14:46 | XMS_ITS | Patient Health Summary ---
Author Organization [facility] Address [address] [place] [address] Care Team Providers Care District Court Justice Name Role Phone Unknown, Provider Primary Care Provider Unavaila ble Note from [facility],non-owned Affiliates and Associated Physician Practices is amultiple site organization consisting of ambulatory clinics and hospital sitesin [place] and [place]. This disclosure is being madepursuant to the Care Everywhere program and may not contain all information available regarding this patient. Last updated 18.[facility] Immunizations * INFLUENZA VACCINE, HIGH-DOSE, QUADR. (FLUZONE HIGH-DOSE QUADRIVALENT; 65Y+), 0.7 ML (HD-IIV4)(Given 09/15/2021) Social History Tobacco Use Types Packs/Day Years Used Date Smoking Tobacco: Never Assessed Sex and Gender Information Value Date Recorded Sex Assigned at Not on file Gender Identity Not on file Sexual Orientation Not on file Care Teams District Court Justice Relationship Specialty Start Date End Date Unknown, Provider PCP - General 09/15/21
--- OUTSIDE RECORDS SUMMARY | 2024-12-30 14:46 | XMS_ITS | Referral Summary ---
Author Organization [facility] [employer] Address [address] [place] [address] Care Team Providers Care Hoop Riveting Machine Operator Helper Name Role Phone Unknown, Provider Primary Care Provider Unavaila ble Source Comments [facility],non-owned Affiliates and Associated Physician Practices is amultiple site organization consisting of ambulatory clinics and hospital sitesin [place], [place], [place] and [place]. This disclosure is being madepursuant to the Care Everywhere program and may not contain all information available regarding this patient. Last updated 18.[facility] [employer] Immunizations Name Administration Dates Next Due INFLUENZA VACCINE, HIGH-DOSE , QUADR. (FLUZONE HIGH-DOSE QUADRIVALENT; 65Y+), 0.7 ML (HD-IIV4) 09/15/2021 Social History Tobacco Use Types Packs/Day Years Used Date Smoking Tobacco: Never Assessed Sex and Gender Information Value Date Recorded Sex Assigned at Not on file Gender Identity Not on file Sexual Orientation Not on file Plan of Treatment Not on file Care Teams Hoop Riveting Machine Operator Helper Relationship Specialty Start Date End Date Unknown, Provider PCP - General 09/15/21
--- OUTSIDE RECORDS SUMMARY | 2024-12-30 14:46 | XMS_ITS | Referral Summary ---
[facility] Organization [facility] Address [address] [place] [address] Care Team Providers Care Personnel Scheduler Name Role Phone Ernesto Brink MD Primary Care Provider [phone] Hua Chávez MD Unavailable Allergies Active Allergy Reactions Criticality Noted Date Comments Ciprofloxacin Other (See comments) Low unknown Clindamycin Other (See comments) Low unknown Sulfamethoxazole-Trimethoprim Shortness of breath High 11/19/2018 rash Sulfa (Sulfonamide Antibiotics) Shortness of breath High 11/19/2018 Medications amLODIPine (NORVASC) 10 mg tablet 2018 Active levothyroxine (SYNTHROID, LEVOTHROID) 88 mcg tablet Take 1 tablet by mouth daily. 1 10/15/2018 Active pravastatin (PRAVACHOL) 40 mg tabletIndicatio ns:hyperlipidem ia Take 1 tablet (40 mg total) by mouth nightly 08/16/2018 Active iron bisgly,ps-FA-B- C#12-succ 65 mg-65 mg -1,000 mcg (24) tablet Take 1 tablet/capsul e by mouth 2 (two) times a day. Active losartan (COZAAR) 100 mg tablet Take 1 tablet (100 mg total) by mouth daily Active alendronate (FOSAMAX) 70 mg tablet Take 1 tablet (70 mg total) by mouth every 7 days Take in the morning with a full glass of water, on an empty stomach, and do not take anything else by mouth or lie down for the next 30 min. Active ascorbic acid (VITAMIN C) 500 mg tablet,chewable Indications:Vit stoll deficiency prevention Take 1 tablet/chew tab (500 mg total) by mouth daily 30 tablet/chew tab 01/16/2021 Active meloxicam (MOBIC) 15 mg tablet TAKE 1 TABLET(15 MG) BY MOUTH DAILY 90 tablet 01/25/2021 Active metFORMIN (GLUCOPHAGE) 500 mg tablet 12/29/2021 Activ e naproxen (NAPROSYN) 500 mg tablet Take 1 tablet (500 mg total) by mouth daily 60 tablet 1 04/13/2023 Active Active Problems Problem Noted Date Diagnosed Date Aftercare following left knee joint replacement surgery 01/29/2021 Aftercare following right knee joint replacement surgery 12/11/2018 Primary osteoarthritis of right knee 11/16/2018 Overview (11/16/2018): Added automatically from request for surgery [id number] Hypothyroidism 03/22/2014 Overview (02/09/2017): HYPOTHYROIDISM NOS Hypertension 03/22/2014 Overview (02/10/2017): HYPERTENSION NOS Resolved Problems Problem Noted Date Diagnosed Date Resolved Date Primary osteoarthritis of left knee 12/17/2020 01/29/2021 Social History Tobacco Use Types Packs/Day Years Used Date Smoking Tobacco: Never Smokeless Tobacco: Never Alcohol Use Standard Drinks/Week Comments No 0 (1 standard drink = 0.6 oz pur e alcohol) AUDIT-C Answer Date Recorded Q1: How often do you have a drink containing alc ohol? Monthly or less 01/08/2021 Average Number of Drinks Not on file 021 Frequency of Binge Drinking Not on file 03/2021 PHQ-2 Answer Date Recorded PHQ-2 Total Score (If total score is 3 or more points, staff should administer the PHQ-9) 0 01/15/2021 Comments Unknown Sex and Gender Information Value Date Recorded Sex Assigned at Not on file Legal Sex Female 6:05 PM ADVERTISING OPERATIONS COORDINATOR Gender Identity Not on file Sexual Orientation Not on file Last Filed Vital Signs Vital Sign Reading Time Taken Comments Blood Pressure 168/93 04/13/2023 8:36 AM CDT Pulse 62 04/13/2023 8:36 AM CDT Temperature 36.7 C (98.1 F) 01/16/2021 11:25 AM ADVERTISING OPERATIONS COORDINATOR Respiratory Rate 18 01/16/2021 11:25 AM ADVERTISING OPERATIONS COORDINATOR Oxygen Saturation 93% 01/16/2021 11:25 AM ADVERTISING OPERATIONS COORDINATOR Inhaled Oxygen Concentration - - Weight 80.3 kg (177 lb) 04/13/2023 8:36 AM CDT Height 154.9 cm (5' 1 ) 04/13/2023 8:36 AM CDT Body Mass Index 33.44 04/13/2023 8:36 AM CDT Plan of Treatment Not on file Medical Devices Implanted Type Area Control Clerk Device Identifier Shelf Expiration Date Model / Serial / Lot [employer] 6195-1-001 Cement Bone Simplex Gentamicin High Viscosity 40gm - [id number] Implanted:Qty: 2 on 01/15/2021 by Hua Chávez MD at [facility] Bone Cement Left: Knee [employer] 01/03/2022 6195-1-001 / / [employer] [id number] Attune Cruciate Retain Cementless Knee Right 4 Narrow Component - [id number] Implanted:Qty: 1 on 12/03/2018 by Hua Chávez MD at [facility] Right: Knee [employer] 08/05/2026 [id number] / / [id number] [employer] [id number] Attune Cementless Rotate Platform Knee 4 Baseplate Tibial - [id number] Implanted:Qty: 1 on 12/03/2018 by Hua Chávez MD at [facility] Right: Knee [employer] 10/05/2027 [id number] / / [id number] [employer] [id number] Attune 7mm Cruciate Retaining Rotate Platform Knee 4 Insert - [id number] Implanted:Qty: 1 on 12/03/2018 by Hua Chávez MD at [facility] Right: Knee [employer] 08/05/2023 [id number] / / [id number] [employer] [id number] Attune Cemented Posterior Stabilize Knee Left 4 Narrow Component - [id number] Implanted:Qty: 1 on 01/15/2021 by Hua Chávez MD at [facility] Left: Knee [employer] 09/05/2030 [id number] / / [id number] [employer] [id number] Attune S+ Cement Fix Bearing Knee 4 Baseplate Tibial - [id number] Implanted:Qty: 1 on 01/15/2021 by Hua Chávez MD at [facility] Left: Knee [employer] 10/05/2030 [id number] / / [id number] [employer] [id number] Attune 6mm Posterior Stabilize Fix Bearing Knee 4 Insert Tibial - [id number] Implanted:Qty: 1 on 01/15/2021 by Hua Chávez MD at [facility] Left: Knee [employer] 12/06/2024 [id number] / / [id number] Insurance AETNA MEDICARE [facility] MEDICARE AETNA MEDICARE Advance Directives For more information, please contact: [phone] Documents on File Type Date Recorded Patient Hide And Skin Classer Expl anation ADVANCE DIRECTIVE 01/15/2021 7:19 AM Power of Electron Beam Welder-Medical * Full Code (Latest Code Status on File) Date Activated Date Inactivated Comments 01/15/2021 12:30 PM 01/16/2021 8:26 PM * Full Code Date Activated Date Inactivated Comments 12/03/2018 2:04 PM 12/05/2018 10:11 PM Care Teams Personnel Scheduler Relationship Specialty Start Date End Date Ernesto Brink MD [address] [place] [address] PCP - General Internal Medicine 12/24/20 Hua Chávez MD [address] [place] [address] Surgeon Orthopedic Surgery 01/16/21
--- OUTSIDE RECORDS SUMMARY | 2024-12-30 14:46 | XMS_ITS | Clinical Summary ---
Author Organization [facility] Address [address] [place] [address] Care Team Providers Care Manager Radio Name Role Phone Ernesto Brink MD Primary Care Provider [phone] Hua Chávez MD Unavailable [phone] Allergies Active Allergy Reactions Criticality Noted Date [...] (11/16/2018): Added automatically from request for surgery [id number] Hypothyroidism 03/22/2014 Overview (02/09/2017): HYPOTHYROIDISM NOS Hypertension 03/22/2014 Overview (02/10/2017): HYPERTENSION NOS Resolved Problems Problem Noted Date Diagnosed Date Resolved Date Primary osteoarthritis of left knee 12/17/2020 01/29/2021 Surgical History Surgery Date Site/Laterality Comments TOTAL ABDOMINAL HYSTERECTOMY W/ BILATERAL SALPINGOOPHORECTOMY 11/06/1988 - 11/05/1989 Hysterectomy, total abdominal, BSO TONSILLECTOMY 11/06/1980 - 11/05/1981 Tonsillectomy BACK SURGERY 11/06/1997 - 11/05/1998 Back surgery APPENDECTOMY 11/06/1957 - 11/05/1958 Appendectomy CHOLECYSTECTOMY 11/06/1965 - 11/05/1966 Cholecystectomy CARPAL TUNNEL RELEASE 11/06/1997 - 11/05/1998 Carpal tunnel release HYSTERECTOMY 11/06/1977 - 11/05/1978 Hysterectomy KNEE ARTHROSCOPY TRIGGER FINGER RELEASE SPINE SURGERY Medical History Medical History Date Comments Disorder of thyroid Thyroid dise ase Hyperlipidemia Hyperlipidemia Hypertension Hypertension Diabetes mellitus (HCC) Kidney stone Heart attack (HCC) no damage to heart over 40 years ago Sleep apnea GERD (gastroesophageal reflux disease) Hypothyroidism Type 2 diabetes mellitus (HCC) t reated for pre-diabetes Family History Medical History Relation Name Comments Coronary artery disease Other 1 Fami ly history of Coronary artery disease; Hypertension Other 2 Family history of Hypertension; Thyroid disease Other 3 Family histo ry of Thyroid disorder; Relation Name Status Comments Other 1 Other 2 Other 3 Social History Tobacco Use Types Packs/Day Years [...] on file Legal Sex Female 6:05 PM FLAT SURFACER JEWEL Gender Identity Not on file Sexual Orientation Not on file Obstetrics History Last Filed Vital Signs Vital Sign Reading Time Taken Comments Blood Pressure 168/93 04/13/2023 8:36 AM CDT Pulse 62 04/13/2023 8:36 AM CDT Temperature 36.7 C (98.1 F) 01/16/2021 11:25 AM FLAT SURFACER JEWEL Respiratory Rate 18 01/16/2021 11:25 AM FLAT SURFACER JEWEL Oxygen Saturation 93% 01/16/2021 11:25 AM FLAT SURFACER JEWEL Inhaled Oxygen Concentration - - Weight 80.3 kg (177 lb) 04/13/2023 8:36 AM CDT Height 154.9 cm (5' 1 ) 04/13/2023 8:36 AM CDT Body Mass Index 33.44 04/13/2023 8:36 AM CDT Plan of Treatment Health Maintenance Due Date Last Done Comments Osteoporosis Screening-Bone Density Scan 1943 DTaP/Tdap/Td Vaccine (1 - Tdap) 1954 Hepatitis B Screening 1961 Zoster Vaccine (1 of 2) 1993 Well Visit 65+ 2008 Pneumococcal vaccine 65+ (2 of 2 - PPSV23) 08/08/2018 08/08/2017 Depression Screening 12/30/2021 12/30/2020 Fall Risk Assessment 01/16/2022 01/16/2021 Influenza Vaccine (#1) 2024 08/08/2017, 2011 Medical Devices Implanted Type Area Chief Medical Officer Device Identifier Shelf Expiration Date Model / Serial / Lot [employer] 6195-1-001 Cement Bone Simplex Gentamicin High Viscosity 40gm - [id number] Implanted:Qty: 2 on 01/15/2021 by Hua Chávez MD at [facility] Bone Cement Left: Knee [employer] 01/03/2022 6195-1-001 / / [employer] [id number] Attune Cruciate Retain Cementless Knee Right 4 Narrow Component - [id number] Implanted:Qty: 1 on 12/03/2018 by Hua Chávez MD at [facility] Right: Knee [employer] 08/05/2026 [id number] / / [id number] [employer] [id number] Attune Cementless Rotate Platform Knee 4 Baseplate Tibial - [id number] Implanted:Qty: 1 on 12/03/2018 by Hua Chávez MD at [facility] Right: Knee [employer] 10/05/2027 [id number] / / [id number] [employer] [id number] Attune 7mm Cruciate Retaining Rotate Platform Knee 4 Insert - [id number] Implanted:Qty: 1 on 12/03/2018 by Hua Chávez MD at [facility] Right: Knee [employer] 08/05/2023 [id number] / / [id number] [employer] [id number] Attune Cemented Posterior Stabilize Knee Left 4 Narrow Component - [id number] Implanted:Qty: 1 on 01/15/2021 by Hua Chávez MD at [facility] Left: Knee [employer] 09/05/2030 [id number] / / [id number] [employer] [id number] Attune S+ Cement Fix Bearing Knee 4 Baseplate Tibial - [id number] Implanted:Qty: 1 on 01/15/2021 by Hua Chávez MD at [facility] Left: Knee [employer] 10/05/2030 [id number] / / [id number] [employer] [id number] Attune 6mm Posterior Stabilize Fix Bearing Knee 4 Insert Tibial - [id number] Implanted:Qty: 1 on 01/15/2021 by Hua Chávez MD at [facility] Left: Knee [employer] 12/06/2024 [id number] / / [id number] Insurance [facility] MEDICARE [facility] AETNA MEDICARE AETNA MEDICARE Advance Directives For more information, please contact: [phone] Documents on File Type Date Recorded Patient Metal Fabrication Supervisor Expl anation ADVANCE DIRECTIVE 01/15/2021 7:19 AM Power of Plant Buyer-Medical * Full Code (Latest Code Status on File) Date Activated Date Inactivated Comments 01/15/2021 12:30 PM 01/16/2021 8:26 PM * Full Code Date Activated Date Inactivated Comments 12/03/2018 2:04 PM 12/05/2018 10:11 PM Care Teams Manager Radio Relationship Specialty Start Date End Date Ernesto Brink MD [address] [place] [address] PCP - General Internal Medicine 12/24/20 Hua Chávez MD [address] [place] [address] Surgeon Orthopedic Surgery 01/16/21
== END 2024-12-30 13:01 | disposition home or self-care (01) ==
LOC: CHSIMG 13:01
PROVIDERS: PCP Family Medicine; Visit Provider Family Medicine
DX: Z12.31 Encounter for screening mammogram for malignant neoplasm of breast (principal)
CPT/HCPCS: 77063; 77067

== ENCOUNTER 2025-05-28 07:06 | Outpatient (CLI) | payer MEDICARE, SELFPAY ==
--- OUTSIDE RECORDS SUMMARY | 2025-05-28 07:09 | XMS_ITS | Clinical Summary ---
Author Organization [facility] [employer] Address [address] [place] [address] Care Team Providers Care Bank Worker Name Role Phone Unknown, Provider Primary Care Provider Unavaila ble Source Comments [facility],non-owned Affiliates and Associated Physician Practices is amultiple site organization consisting of ambulatory clinics and hospital sitesin [place], [place], [place] and [place]. This disclosure is being madepursuant to the Care Everywhere program and may not contain all information available regarding this patient. Last updated 18.[facility] [employer] Immunizations Immunization Administration Dates Next Due INFLUENZA VACCINE, HIGH-DOSE , QUADR. (FLUZONE HIGH-DOSE QUADRIVALENT; 65Y+), 0.7 ML (HD-IIV4) 09/15/2021 Social History Tobacco Use Types Packs/Day Years Used Date Smoking Tobacco: Never Assessed Comments Unknown Sex and Gender Information Value Date Recorded Sex Assigned at Not on file Legal Sex Female 12:23 PM CDT Gender Identity Not on file [...] - 1-dose 75+ series) 2018 COVID-19 VACCINE ( - 2023-2 5 season) 2024 01/22/2021, 01/01/2021 DEPRESSION SCREENING 11/06/2024 INFLUENZA VACCINE (#1) 2025 , 11/02/2012 HEPATITIS B VACCINE Aged Out No longe r eligible based on patient's age to complete this topic HIB VACCINE Aged Out No longer eligi ble based on patient's age to complete this topic HPV VACCINE Aged Out No longer eligi ble based on patient's age to complete this topic MENINGOCOCCAL (Group B) VACCINE SHARED DECISION-MAKING Aged Out No longer eligible based on patient's age to complete this topic MENINGOCOCCAL GROUPS A/C/Y/W VACCINE Aged Out No longer eligible b ased on patient's age to complete this topic Insurance AETNA Care Teams Bank Worker Relationship Specialty Start Date End Date Unknown, Provider PCP - General 09/15/21
--- OUTSIDE RECORDS SUMMARY | 2025-05-28 07:09 | XMS_ITS | Referral Summary ---
Author Organization [facility] Address [address] [place] [address] Care Team Providers Care Metal Drilling Machine Operator Name Role Phone Ernesto Brink MD Primary Care Provider [phone] Hua Chávez MD Unavailable [phone] Allergies Active Allergy Reactions Criticality Noted Date [...] (11/16/2018): Added automatically from request for surgery [id number] Hypothyroidism 03/22/2014 Overview (02/09/2017): HYPOTHYROIDISM NOS Hypertension [...] on file Legal Sex Female 6:05 PM ANSWERER Gender Identity Not on file Sexual Orientation Not on file Last Filed Vital Signs Vital Sign Reading Time Taken Comments Blood Pressure 168/93 04/13/2023 8:36 AM CDT Pulse 62 04/13/2023 8:36 AM CDT Temperature 36.7 C (98.1 F) 01/16/2021 11:25 AM ANSWERER Respiratory Rate 18 01/16/2021 11:25 AM ANSWERER Oxygen Saturation 93% 01/16/2021 11:25 AM ANSWERER Inhaled Oxygen Concentration - - Weight 80.3 kg (177 lb) 04/13/2023 8:36 AM CDT Height 154.9 cm (5' 1) 04/13/2023 8:36 AM CDT Body Mass Index 33.44 04/13/2023 8:36 AM CDT Plan of Treatment Not on file Medical Devices Implanted Type Area Jackerman Device Identifier Shelf Expiration Date Model / Serial / Lot [employer] 6195-1-001 Cement Bone Simplex Gentamicin High Viscosity 40gm - [id number] Implanted:Qty: 2 on 01/15/2021 by Hua Chávez MD at [facility] Bone Cement Left: Knee [employer] 01/03/2022 6195-1-001 / / [employer] [id number] Attune Cruciate Retain Cementless Knee Right 4 Narrow Component - [id number] Implanted:Qty: 1 on 12/03/2018 by Hua Chávez MD at [facility] Right: Knee [employer] 08/05/2026 [id number] / / [id number] [employer] [id number] Attune Cementless Rotate Platform Knee 4 Baseplate Tibial - [id number] Implanted:Qty: 1 on 12/03/2018 by Hua Chávez MD at [facility] Right: Knee [employer] 10/05/2027 [id number] / / [id number] [employer] [id number] Attune 7mm Cruciate Retaining Rotate Platform Knee 4 Insert - [id number] Implanted:Qty: 1 on 12/03/2018 by Hua Chávez MD at [facility] Right: Knee [employer] 08/05/2023 [id number] / / [id number] [employer] [id number] Attune Cemented Posterior Stabilize Knee Left 4 Narrow Component - [id number] Implanted:Qty: 1 on 01/15/2021 by Hua Chávez MD at [facility] Left: Knee [employer] 09/05/2030 [id number] / / [id number] [employer] [id number] Attune S+ Cement Fix Bearing Knee 4 Baseplate Tibial - [id number] Implanted:Qty: 1 on 01/15/2021 by Hua Chávez MD at [facility] Left: Knee [employer] 10/05/2030 [id number] / / [id number] [employer] [id number] Attune 6mm Posterior Stabilize Fix Bearing Knee 4 Insert Tibial - [id number] Implanted:Qty: 1 on 01/15/2021 by Hua Chávez MD at [facility] Left: Knee [employer] 12/06/2024 [id number] / / [id number] Insurance AETNA MEDICARE [facility] MEDICARE AETNA MEDICARE Advance Directives For more information, please contact: [phone] Documents on File Type Date Recorded Patient Kennel Staff Member Expl anation ADVANCE DIRECTIVE 01/15/2021 7:19 AM Power of Charge Master Specialist-Medical * Full Code (Latest Code Status on File) Date Activated Date Inactivated Comments 01/15/2021 12:30 PM 01/16/2021 8:26 PM * Full Code Date Activated Date Inactivated Comments 12/03/2018 2:04 PM 12/05/2018 10:11 PM Care Teams Metal Drilling Machine Operator Relationship Specialty Start Date End Date Ernesto Brink MD [address] [place] [address] PCP - General Internal Medicine 12/24/20 uHa Chávez MD [address] [place] [address] Surgeon Orthopedic Surgery 01/16/21
--- OUTSIDE RECORDS SUMMARY | 2025-05-28 07:09 | XMS_ITS ---
Author Name Auto Generated, Auto Generated Organization [facility] Address [address] [place] [address] Phone [phone] Care Team Providers Care Proof Inspector Name Role Phone Hua Chávez Unavailable [phone] Darryl Yeung Unavailable [phone] Functional Status No Results Mental Status No Results Allergies and Intolerances Name Onset Date Reaction Severity clindamycin (Allergy) MonDec 05 16:25:00 EST 20 19 ciprofloxacin (Allergy) MonDec 05 16:25:00 EST 2019 Problems No Known Problems Reason for Referral
--- OUTSIDE RECORDS SUMMARY | 2025-05-28 07:09 | XMS_ITS | Clinical Summary ---
Author Organization [facility] Address [facility] [place] [address] Care Team Providers Care Technology Services Manager Name Role Phone Mel Cristobal MD Primary Care Provider [phone] Allergies Active Allergy Reactions Criticality Noted Date Comments Ciprofloxacin Other (see comment) Low 11/21/2024 unknown Clindamycin Other (see comment) Low 11/21/2024 unknown Sulfa Antibiotics Shortness of Breath High 9 Sulfamethoxazole-Trimethoprim Shortness of Breath High 11/19/2018 rash Medications levothyroxine (SYNTHROID) 112 MCG tablet Take 1 tablet (112 mcg total) by mouth every morning. 11/24/2024 Active amLODIPine (NORVASC) 10 MG tablet Take 1 tablet (10 mg total) by mouth daily. 09/14/2024 Active metFORMIN (GLUCOPHAGE) 500 MG tablet Take 1 tablet (500 mg total) by mouth daily. 11/17/2024 Active pravastatin (PRAVACHOL) 40 MG tablet Take 1 tablet (40 mg total) by mouth nightly at bedtime. 10/19/2024 Active losartan (COZAAR) 100 MG tablet Take 1 tablet (100 mg total) by mouth daily. Active apixaban (ELIQUIS) 5 MG tablet Take 1 tablet (5 mg total) by mouth 2 (two) times daily. 180 tablet 3 11/27/2024 Active CALCIUM OR Take 1 each by mouth daily. Active nitroglycerin (NITROSTAT) 0.[address] 1 tablet (0.4 mg total) under the tongue every 5 (five) minutes as needed for Chest Pain. 25 tablet 1 01/23/2025 Active atorvastatin (LIPITOR) 40 MG tablet Take 1 tablet (40 mg total) by mouth daily. 90 tablet 1 02/12/2025 Active clopidogrel (PLAVIX) 75 MG tablet Take 1 tablet (75 mg total) by mouth daily. 90 tablet 1 02/20/2025 Active Active Problems Problem Noted Date Diagnosed Date NSTEMI (non-ST elevated myoc ardial infarction) ([facility]) 02/20/2025 Coronary artery disease invo lving [place] coronary artery of [place] heart without angina pectoris 02/20/2025 Cardiac pacemaker in situ 02/05/2025 Overview (02/05/2025): Medtronic [place] Pacemaker implanted 02/04/2025 for SSS Sick sinus syndrome ([facility]) 02/05/2025 Overview (02/05/2025): Medtronic [place] Pacemaker implanted 02/04/2025 for SSS Hypertension 03/22/2014 Overview (11/21/2024): HYPERTENSION NOS Hypothyroidism 03/22/2014 Overview (11/21/2024): HYPOTHYROIDISM NOS Hyperlipidemia Old [place] (myocardial infarction) Resolved Problems Problem Noted Date Diagnosed Date Resolved Date ACS (acute coronary syndrome ) ([facility]) 01/21/2025 01/23/2025 Encounters Date Type Department Care Team Description 05/12/2025 Travel 05/11/2025 2:15 PM CDT Allied Health/Nurse Visit [facility], [address] [address] Berto Fritz MD Remote Device Check 04/24/2025 Telephone [facility], [facility] [address] [place] [address] Anuja Fulton, SEAN Question 04/02/2025 Scan [facility], [facility] [address] [place], [place] [id number] Scanned, Doc Pccl 03/07/2025 9:30 AM CDT Office Visit [facility], [address] [address] Berto Fritz MD Follow Up; Atrial Fibrillation 03/07/2025 Travel from Last 3 Months Immunizations Immunization Administration Dates Next Due FLUAD (IIV, Trivalent, 0.5 ML Pre-filled Syringe ) 08/30/2024 Fluzone High Dose (IIV, trivalent, 0.5mL) 2016 Fluzone High Dose - >Age 65 (Prefilled Syringe) 08/30/2022,09/15/2021 Influenza (Generic) 11/02/2012 Pneumococcal (Prevnar 13) 08/08/2017 Family History Medical History Relation Comments Stroke Maternal Grandfather CABG Mother Stroke Mother Stroke Paternal Grandmother pacemaker Sister Relation Status Comments Maternal Grandfather Mother Paternal Grandmother Sister Alive Social History Tobacco Use Types Packs/Day Years Used Date Smoking Tobacco: Never Smokeless Tobacco: Never Tobacco Cessation:Counseling Given: Not Answered Alcohol Use Standard Drinks/Week Comments Never 0 (1 standard drink = 0.6 oz pur e alcohol) [facility] Utilities Answer Date Recorded In the past 12 months has e [employer], gas, oil, or water [employer] threatened to shut off services in your home? No 01/22/2025 Humiliation, Afraid, Rape, and Kick questionnair e Answer Date Recorded Within the last year, have y ou been afraid of your partner or ex-partner? No 01/22/2025 Within the last year, have y ou been humiliated or emotionally abused in other ways by your partner or ex-partner? No Within the last year, have y ou been kicked, hit, slapped, or otherwise physically hurt by your partner or ex-partner? No 01/22/2025 Within the last year, have y ou been raped or forced to have any kind of sexual activity by your partner or ex-partner? No 01/22/2025 Overall Financial Resource Strain (CARDIA) Answe r Date Recorded How hard is it for you to pa y for the very basics like food, housing, medical care, and heating? Not hard at all 01/22/2025 Hunger Vital Sign Answer Date Recorded Within the past 12 months, y ou worried that your food would run out before you got the money to buy more. Never true 01/23/20 25 Within the past 12 months, t he food you bought just didn't last and you didn't have money to get more. Never true 01/22/2025 PRAPARE - Transportation Answer Date Re corded In the past 12 months, has l ack of transportation kept you from medical appointments or from getting medications? No 01/04 In the past 12 months, has l ack of transportation kept you from meetings, work, or from getting things needed for daily living? No 01/22/2025 Housing Stability Vital Sign Answer Kai e Recorded In the last 12 months, was t here a time when you were not able to pay the mortgage or rent on time? No 01/22/2025 In the past 12 months, how m any times have you moved where you were living? 0 01/22/2025 At any time in the past 12 m [facility], were you homeless or living in a fpc (including now)? No 01/22/2025 Comments No Sex and Gender Information Value Date Recorded Sex Assigned at Female 11/25/2024 9:48 AM CARTRIDGE LOADER Legal Sex Female 4:30 PM CDT Gender Identity Not on file Sexual Orientation Not on file Last Filed Vital Signs Vital Sign Reading Time Taken Comments Blood Pressure 132/74 03/07/2025 9:26 AM CDT Pulse 86 03/07/2025 9:26 AM CDT Temperature 36.2 C (97.1 F) 02/04/2025 9:51 AM CDT Respiratory Rate 13 02/04/2025 2:30 PM CDT Oxygen Saturation 98% 03/07/2025 9:26 AM CDT Inhaled Oxygen Concentration - - Weight 75.3 kg (166 lb) 03/07/2025 9:26 AM CDT Height 152.4 cm (5') 03/07/2025 9:26 AM CDT Body Mass Index 32.42 03/07/2025 9:26 AM CDT Plan of Treatment Upcoming Encounters Date Type Department Care Team (Late st Contact Info) Description 06/19/2025 2:30 PM CDT Office Visit [facility], [address] [place] [address] Pat Magaña MD [facility]. [address] [place] [address] 08/10/2025 2:10 PM CDT Allied Health/Nurse Visit [facility], [address] [place] [address] Pat Magaña MD Three [facility]. [address] [place] [address] 08/11/2025 2:30 PM CDT Allied Health/Nurse Visit [facility], [address] [place] [address] Pat Magaña MD Three [facility]. [address] [place] [address] 03/13/2026 10:00 AM CDT Office Visit [facility], [address] [place] [address] Berto Fritz MD Three [facility]. [address] [place] [address] Health Maintenance Due Date Last Done Comments DTaP, Tdap and Td Vaccines ( 1 - Tdap) 1962 Zoster Vaccines (1 of 2) 1993 Annual Medicare Wellness Visit 2008 Dexa Scan (General) 2008 Pneumococcal Vaccine: 50+ Years (2 of 2 - PPSV23) 10/03/2017 08/08/2017 RSV Immunization or 60+ Years (1 - 1-dose 75+ series) 2018 COVID-19 Vaccine (2023-2 5 season) 2024 11/10/2021, 01/22/2021, 01/01/2021 Meningococcal B Vaccine Aged Out No l onger eligible based on patient's age to complete this topic Meningococcal Vaccine Aged Out No nisha kathia eligible based on patient's age to complete this topic RSV Immunizations Under 20 Months Aged Out No longer eligible b ased on patient's age to complete this topic Medical Devices Implanted Type Area Glass Cut Off Supervisor Device Identifier Shelf Expiration Date Model / Serial / Lot Rv (Lbb) Lead Vedessd-Idn-Q ri-02/04/2025 Implanted:Qty : 1 on 02/04/2025 by Berto Fritz MD Lead Implant [employer] CARDIAC RHYTHM AND HEART FAILURE - DIV M [id number] 12/03/2026 [id number] / [id number] V / Description:Left Bundle Bran ch (LBB) Pacemaker-Pankaj JaimesCoto De Caza-Mri-02/04/2025 Implanted:Qty : 1 on 02/04/2025 by Berto Fritz MD Pacemaker [employer] CARDIAC RHYTHM AND HEART FAILURE - DIV M [id number] 05/03/2026 [id number] / [id number] / Insurance AETNA Advance Directives Documents on File Type Date Recorded Patient Furniture Finisher Expl anation Power of Clinical Engineer 02/04/2025 9:02 AM [facility] * Full Code (Latest Code Status on File) Date Activated Date Inactivated Comments 01/22/2025 9:29 AM 01/23/2025 3:14 PM Care Teams Technology Services Manager Relationship Specialty Start Date End Date Mel Cristobal MD [address] [place] [address] PCP - General FAMILY PRACTICE 11/04/24
--- OUTSIDE RECORDS SUMMARY | 2025-05-28 07:09 | XMS_ITS ---
Author Name Auto Generated, Auto Generated Organization [facility] Address [address] [place] [address] Phone [phone] Care Team Providers Care Medical Clerical Assistant Name Role Phone Hua Chávez Unavailable [phone] Darryl Yeung Unavailable [phone] Functional Status No Results Mental Status No Results Allergies and Intolerances Name Onset Date Reaction Severity clindamycin (Allergy) MonDec 05 16:25:00 EST 20 19 ciprofloxacin (Allergy) MonDec 05 16:25:00 EST 2019 Problems No Known Problems Reason for Referral
--- OUTSIDE RECORDS SUMMARY | 2025-05-28 07:09 | XMS_ITS | Clinical Summary ---
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 Gender Identity Not on file Sexual Orientation Not on file Obstetrics History Last Filed Vital Signs Vital Sign Reading Time Taken Comments Blood Pressure 168/93 04/13/2023 8:36 AM CDT Pulse 62 04/13/2023 8:36 AM CDT Temperature 36.7 C (98.1 F) 01/16/2021 11:25 AM INDUSTRIAL SAFETY ENGINEER Respiratory Rate 18 01/16/2021 11:25 AM INDUSTRIAL SAFETY ENGINEER Oxygen Saturation 93% 01/16/2021 11:25 AM INDUSTRIAL SAFETY ENGINEER Inhaled Oxygen Concentration - - Weight 80.3 [...] Risk Assessment 01/16/2022 01/16/2021 Influenza Vaccine (#1) 2025 08/08/2017, 2011 Medical Devices Implanted Type Area Wood Carver Hand Device Identifier Shelf Expiration Date Model / Serial / Lot [employer] 6195-1-001 Cement Bone Simplex Gentamicin High Viscosity 40gm - [id number] Implanted:Qty: 2 on 01/15/2021 by Hua Chávez MD at [facility] Bone Cement Left: Knee [employer] 01/03/2022 6195-1-001 / / Depuy Orthopaed[employer] Inc [id number] Attune Cruciate Retain Cementless Knee Right 4 Narrow Component - [id number] Implanted:Qty: 1 on 12/03/2018 by Hua Chávez MD at [facility] Right: Knee [employer] 08/05/2026 [id number] / / [id number] Depuy Orth[employer]ed[employer] Inc [id number] Attune Cementless Rotate Platform Knee 4 Baseplate Tibial - [id number] Implanted:Qty: 1 on 12/03/2018 by Hua Chávez MD at [facility] Right: Knee [employer] 10/05/2027 [id number] / / [id number] Depuy [employer] Inc [id number] Attune 7mm Cruciate Retaining Rotate Platform Knee 4 Insert - [id number] Implanted:Qty: 1 on 12/03/2018 by Hua Chávez MD at [facility] Right: Knee [employer] 08/05/2023 [id number] / / [id number] Dep[employer] Inc [id number] Attune Cemented Posterior Stabilize Knee Left 4 Narrow Component - [id number] Implanted:Qty: 1 on 01/15/2021 by Hua Chávez MD at [facility] Left: Knee [employer] Inc 09/05/2030 [id number] / / [id number] Dep[employer] Inc [id number] Attune S+ Cement Fix Bearing Knee 4 Baseplate Tibial - [id number] Implanted:Qty: 1 on 01/15/2021 by Hua Chávez MD at [facility] Left: Knee [employer] 10/05/2030 [id number] / / [id number] Dep[employer] Inc [id number] Attune 6mm Posterior Stabilize Fix Bearing Knee 4 Insert Tibial - [id number] Implanted:Qty: 1 on 01/15/2021 by Hua Chávez MD at [facility] Left: Knee [employer] 12/06/2024 [id number] / / [id number] Insurance [facility] AETNA MEDICARE [facility] MEDICARE Advance Directives For more information, please contact: [phone] Documents on File Type Date Recorded Patient Labor Arbitrator Expl anation ADVANCE DIRECTIVE 01/15/2021 7:19 AM Power of Manager Specialty-Medical * Full Code (Latest Code Status on File) Date Activated Date Inactivated Comments 01/15/2021 12:30 PM 01/16/2021 8:26 PM * Full Code Date Activated Date Inactivated Comments 12/03/2018 2:04 PM 12/05/2018 10:11 PM Care Teams Film Booker Relationship Specialty Start Date End Date Ernesto Brink MD [address] [place] [address] PCP - General Internal Medicine 12/24/20 Hua Chávez MD [address] [place] [address] Surgeon Orthopedic Surgery 01/16/21
[2025-05-28 07:43] LABS: MALB Creatinine Ratio 28.3 mg/g (0-30)
[2025-05-28 07:53] LABS: Hemoglobin A1C 5.6 % (<5.7)
[2025-05-28 08:48] LABS: Alanine Aminotransferase 26 U/L (6-35); Albumin Level 4.0 g/dL (3.5-5.1); Alkaline Phosphatase 108 U/L (38-126); Anion Gap 3 mmol/L (4-12); Aspartate Amino Transferase 30 U/L (14-36); Bilirubin,Total 1.1 mg/dL (0.2-1.3); Blood Urea Nitrogen 8 mg/dL (7-17); Calcium 9.1 mg/dL (8.4-10.2); Carbon Dioxide 29 mmol/L (22-30); Chloride 108 mmol/L (98-107); Cholesterol 105 mg/dL (0-200); Estimated Glomerular Filt Rate > 60; Glucose 101 mg/dL (65-110); HDL Direct 46 mg/dL; Osmolality Calculated 288 mOsm/kg (285-295); Potassium 4.0 mmol/L (3.4-5.0); Sodium 140 mmol/L (137-145); Total Protein 6.4 g/dL (6.3-8.2); Triglycerides 127 mg/dL (<150)
[2025-05-28 09:03] LABS: Free T4 Free Thyroxine 1.62 ng/dL (0.78-2.19)
[2025-05-28 09:17] LABS: Thyroid Stimulating Hormone 0.033 uIU/mL (0.465-4.680)
== END 2025-05-28 07:07 | disposition home or self-care (01) ==
LOC: CHSLAB 07:06
PROVIDERS: PCP Family Medicine; Visit Provider Student in an Organized Health Care Education/Training Program
DX: E11.9 Type 2 diabetes mellitus without complications (principal); I10 Essential (primary) hypertension; I48.91 Unspecified atrial fibrillation; I25.10 Atherosclerotic heart disease of native coronary artery without angina pectoris; E78.2 Mixed hyperlipidemia; E03.9 Hypothyroidism, unspecified
CPT/HCPCS: 36415; 80053; 80061; 82043; 83036; 84439; 84443

== ENCOUNTER 2025-07-04 11:00 | Outpatient (RCR) | payer MEDICARE, SELFPAY ==
[2025-04-02 15:44] VITALS: BP 117/79; PULSE 71; RESP 16; O2SAT 100; BMI 32.7
== END 2025-07-11 12:19 | disposition home or self-care (01) ==
PROVIDERS: PCP Family Medicine
DX: I21.9 Acute myocardial infarction, unspecified (principal)
CPT/HCPCS: 93798

== ENCOUNTER 2025-09-02 10:24 | Outpatient (CLI) | payer MEDICARE, SELFPAY ==
[2025-09-02 11:48] LABS: Thyroid Stimulating Hormone 3.230 uIU/mL (0.465-4.680)
--- OUTSIDE RECORDS SUMMARY | 2025-09-02 11:58 | XMS_ITS | Clinical Summary ---
Author Organization [facility] [employer] Address [address] [place] [address] Care Team Providers Care Drafter Cartographic Name Role Phone Unknown, Provider Primary Care Provider Unavaila ble Source Comments [facility],non-owned Affiliates and Associated Physician Practices is amultiple site organization consisting of ambulatory clinics and hospital sitesin [place], [place], [place] and [place]. This disclosure is being madepursuant to the Care Everywhere program and may not contain all information available regarding this patient. Last updated 18.[facility] [employer] Immunizations Immunization Administration Dates Next Due INFLUENZA [...] yrs (1 - 1-dose 75+ series) 2018 DEPRESSION SCREENING 11/06/2024 COVID-19 VACCINE (3 - 2024-2 6 season) 2025 01/22/2021, 01/01/2021 INFLUENZA VACCINE (#1) 2025 , 11/02/2012 HEPATITIS [...] complete this topic Insurance AETNA Care Teams Drafter Cartographic Relationship Specialty Start Date End Date Unknown, Provider PCP - General 09/15/21
--- OUTSIDE RECORDS SUMMARY | 2025-09-02 11:58 | XMS_ITS | Clinical Summary ---
Author Organization [facility] Medical Office Building [facility] Address [address] [place] [address] Care Team Providers Care Farmworker Chicken Farm Name Role Phone Ernesto Brink MD Primary Care Provider [phone] Hua Chávez MD Unavailable [phone] Allergies Active Allergy Reactions Criticality Noted Date [...] (11/16/2018): Added automatically from request for surgery [id number] Hypothyroidism 03/22/2014 Overview (02/09/2017): HYPOTHYROIDISM NOS Hypertension [...] ase Hyperlipidemia Hyperlipidemia Hypertension Hypertension Diabetes mellitus Kidney stone Heart attack (HCC) no damage to heart over 40 years ago Sleep apnea GERD (gastroesophageal reflux disease) Hypothyroidism Type 2 diabetes mellitus treated for pre-diabetes Family History Medical History Relation [...] on file Legal Sex Female 6:05 PM RN FIELD Gender Identity Not on file Sexual Orientation Not on file Obstetrics History Last Filed Vital Signs Vital Sign Reading Time Taken Comments Blood Pressure 168/93 04/13/2023 8:36 AM CDT Pulse 62 04/13/2023 8:36 AM CDT Temperature 36.7 C (98.1 F) 01/16/2021 11:25 AM RN FIELD Respiratory Rate 18 01/16/2021 11:25 AM RN FIELD Oxygen Saturation 93% 01/16/2021 11:25 AM RN FIELD Inhaled Oxygen Concentration - - Weight 80.3 [...] Pneumococcal vaccine 65+ (2 of 2 - PCV20 or PCV21) 08/08/2018 08/08/2017 Depression Screening 12/30/2021 12/30/2020 Fall Risk Assessment 01/16/2022 01/16/2021 Influenza Vaccine (#1) 2025 08/08/2017, 2011 Medical Devices Implanted Type Area Finishing Wire Sawyer Device Identifier Shelf Expiration Date Model / Serial / Lot [employer] 6195-1-001 Cement Bone Simplex Gentamicin High Viscosity 40gm - [id number] Implanted:Qty: 2 on 01/15/2021 by Hua Chávez MD at [facility] Bone Cement Left: Knee [employer] 01/03/2022 6195-1-001 / / [employer] [id number] Attune Cruciate Retain Cementless Knee Right 4 Narrow Component - [id number] Implanted:Qty: 1 on 12/03/2018 by Hua Chávez MD at [facility] Right: Knee [employer] 08/05/2026 [id number] / / [id number] [employer] [id number] Attune Cementless Rotate Platform Knee 4 Baseplate Tibial - [id number] Implanted:Qty: 1 on 12/03/2018 by Hua Chávez MD at [facility] Right: Knee [employer] 10/05/2027 [id number] / / [id number] [employer] [id number] Attune 7mm Cruciate Retaining Rotate Platform Knee 4 Insert - [id number] Implanted:Qty: 1 on 12/03/2018 by Hua Chávez MD at [facility] Right: Knee [employer] 08/05/2023 [id number] / / [id number] [employer] [id number] Attune Cemented Posterior Stabilize Knee Left 4 Narrow Component - [id number] Implanted:Qty: 1 on 01/15/2021 by Hua Chávez MD at [facility] Left: Knee [employer] 09/05/2030 [id number] / / [id number] [employer] [id number] Attune S+ Cement Fix Bearing Knee 4 Baseplate Tibial - [id number] Implanted:Qty: 1 on 01/15/2021 by Hua Chávez MD at [facility] Left: Knee [employer] 10/05/2030 [id number] / / [id number] [employer] [id number] Attune 6mm Posterior Stabilize Fix Bearing Knee 4 Insert Tibial - [id number] Implanted:Qty: 1 on 01/15/2021 by Hua Chávez MD at [facility] Left: Knee [employer] 12/06/2024 [id number] / / [id number] Insurance AETNA MEDICARE [facility] AETNA MEDICARE AETNA MEDICARE Advance Directives For more information, please contact: [phone] Documents on File Type Date Recorded Patient Indoor Landscape Architect Expl anation ADVANCE DIRECTIVE 01/15/2021 7:19 AM Power of Bass Singer-Medical * Full Code (Latest Code Status on File) Date Activated Date Inactivated Comments 01/15/2021 12:30 PM 01/16/2021 8:26 PM * Full Code Date Activated Date Inactivated Comments 12/03/2018 2:04 PM 12/05/2018 10:11 PM Care Teams Farmworker Chicken Farm Relationship Specialty Start Date End Date Ernesto Brink MD [address] [place], [place] [id number] PCP - General Internal Medicine 12/24/20 Hua Chávez MD [address] [place] [address] Surgeon Orthopedic Surgery 01/16/21
--- OUTSIDE RECORDS SUMMARY | 2025-09-02 11:58 | XMS_ITS | Clinical Summary ---
Author Organization [facility] Address [facility] [place] [address] Care Team Providers Care Box Press Operator Name Role Phone Mel Cristobal MD Primary Care Provider [phone] Allergies Active Allergy Reactions Criticality Noted Date Comments Ciprofloxacin Other (see comment) Low 11/21/2024 unknown Clindamycin Other (see comment) Low 11/21/2024 unknown Sulfa Antibiotics Shortness of Breath High 9 Sulfamethoxazole-Trimethoprim Shortness of Breath High 11/19/2018 rash Medications metFORMIN (GLUCOPHAGE) 500 MG tablet Take 1 tablet (500 mg total) by mouth daily. 11/17/2024 Active losartan (COZAAR) 100 MG tablet Take [...] Chest Pain. 25 tablet 1 01/23/2025 Active LEVOXYL 100 MCG tablet Take 1 tablet (100 mcg total) by mouth daily. 06/02/2025 Active amLODIPine (NORVASC) 10 MG tablet Take 0.5 tablets (5 mg total) by mouth daily. 06/16/2025 Active clopidogrel (PLAVIX) 75 MG tablet TAKE 1 TABLET DAILY (STOP BRILINTA) 90 tablet 1 07/29/2025 Active atorvastatin (LIPITOR) 40 MG tablet TAKE 1 TABLET DAILY 90 tablet 1 07/29/2025 Active Active Problems Problem Noted Date Diagnosed Date NSTEMI (non-ST elevated myocardial infarction) 0 02/20/2025 Coronary artery disease invo lving [place] coronary artery of [place] heart without angina pectoris 02/20/2025 Cardiac pacemaker in situ 02/05/2025 Overview (02/05/2025): Med[employer] Barbara Pacemaker implanted 02/04/2025 for SSS Sick sinus syndrome 02/05/2025 Overview (02/05/2025): [employer]onic Barbara Pacemaker implanted 02/04/2025 for SSS Hypertension 03/22/2014 Overview (11/21/2024): HYPERTENSION NOS Hypothyroidism 03/22/2014 Overview (11/21/2024): HYPOTHYROIDISM NOS Hyperlipidemia Old [place] (myocardial infarction) Resolved Problems Problem Noted Date Diagnosed Date Resolved Date ACS (acute coronary syndrome) 01/21/2025 01/23/2025 Encounters Date Type Department Care Team Description 08/11/2025 Travel 08/10/2025 2:10 PM CDT Allied Health/Nurse Visit [facility] [address] [place] [address] Pat Magaña MD Remote Device Check 07/11/2025 Scan [facility] [address] [place] [address] Scanned, Doc Pccl 06/19/2025 Scan [facility] [address] [place] [address] Scanned, Doc Pccl 06/16/2025 12:00 PM CDT Office Visit [facility] [address] [place] [address] Pat Magaña MD Coronary Artery Disease; Atrial Fibrillation (3 month follow up) 06/16/2025 Travel from Last 3 Months Immunizations Immunization Administration Dates Next Due FLUAD (IIV, Trivalent, 0.5 ML Pre-filled Syringe ) 08/30/2024 Fluzone High Dose (IIV, trivalent, 0.5mL) 2016 Fluzone High Dose - >Age 65 (Prefilled Syringe) 08/30/2022,09/15/2021 Influenza (Generic) 11/02/2012 Pneumococcal (Prevnar 13) 08/08/2017 Family History Medical History Relation Comments Stroke Maternal Grandfather CABG Mother Stroke Mother Stroke Paternal Grandmother pacemaker Sister CABG Son Diabetes Son Relation Status Comments Maternal Grandfather Mother Paternal Grandmother Sister Alive Son Alive Social History Tobacco Use Types Packs/Day Years Used Date Smoking Tobacco: Never Smokeless Tobacco: Never Tobacco Cessation:Counseling Given: Not Answered Alcohol Use Standard Drinks/Week Comments Never 0 (1 standard drink = 0.6 oz pur e alcohol) [facility] Utilities Answer Date Recorded In the past 12 months has e Traction, oil, or water garbs threatened to shut off services in your [...] any time in the past 12 m [facility], were you homeless or living in a half-way (including now)? No 01/22/2025 Comments No Sex and Gender Information Value Date Recorded Sex Assigned at Female 11/25/2024 9:48 AM DAY CARE HOME MOTHER Legal Sex Female 4:30 PM CDT Gender Identity Not on file Sexual Orientation Not on file Last Filed Vital Signs Vital Sign Reading Time Taken Comments Blood Pressure 112/64 06/16/2025 12:16 PM CDT Pulse 74 06/16/2025 11:46 AM CDT Temperature 36.2 C (97.1 F) 02/04/2025 9:51 AM CDT Respiratory Rate 13 02/04/2025 2:30 PM CDT Oxygen Saturation 98% 06/16/2025 11:46 AM CDT Inhaled Oxygen Concentration - - Weight 73.5 kg (162 lb) 06/16/2025 11:46 AM CDT Height 152.4 cm (5') 06/16/2025 11:46 AM CDT Body Mass Index 31.64 06/16/2025 11:46 AM CDT Plan of Treatment Upcoming Encounters Date Type Department Care Team (Late st Contact Info) Description 11/09/2025 2:20 PM DAY CARE HOME MOTHER Allied Health/Nurse Visit [facility] [place] [address] Rommel Kirkland MD [address] [facility]. [address] [place] [address] 11/10/2025 2:20 PM DAY CARE HOME MOTHER Allied Health/Nurse Visit [facility] [place] [address] Rommel Kirkland MD Three [facility]. [address] [place] [address] 12/25/2025 1:15 PM DAY CARE HOME MOTHER Office Visit [facility] [place] [address] Anuja Fulton, SEARCH LEAD Three [facility]. [address] [place], [place] [id number] 03/13/2026 10:00 AM CDT Office Visit [facility] [address] [facility] [place] [address] Berto Fritz MD [facility] [address] [place] [address] Mi Obrien, SEARCH LEAD [address] [facility], [facility] [address] [place], [place] [address] Health Maintenance Due Date Last Done Comments DTaP, Tdap and Td Vaccines (1 - Tdap) 1962 Zoster Vaccines (1 of 2) 1993 Annual Medicare Wellness Visit 2008 Dexa Scan (General) 2008 Pneumococcal Vaccine: 50+ Years (2 of 2 - PPSV23, PCV20, or PCV21) 10/03/2017 08/08/2017 RSV Immunization or 60+ Years (1 - 1-dose 75+ series) 2018 COVID-19 Vaccine ( season) 2025 11/10/2021, 01/22/2021, 01/01/2021 Influenza Adult (#1) 2025 08/30/2024, 08/30/2022, 09/15/2021, Additional history exists Hepatitis A Vaccines Aged Out No long er eligible based on patient's age to complete this topic Meningococcal B Vaccine Aged Out No l onger eligible based on patient's age to complete this topic Meningococcal Vaccine Aged Out No nisha kathia eligible based on patient's age to complete this topic RSV Immunizations Under 20 Months Aged Out No longer eligible based on patient's age to complete this topic Medical Devices Implanted Type Area Photographs Curator Device Identifier Shelf Expiration Date Model / Serial / Lot Rv (Lbb) Lead [id number] ri-02/04/2025 Implanted:Qty : 1 on 02/04/2025 by Berto Fritz MD Lead Implant [employer] C[employer] RHY[employer]M AND HEART FAILURE - DIV M [id number] 12/03/2026 [id number] / [id number] / Description:Left Bundle Bran ch (LBB) Pacemaker-[place]-02/04/2025 Implanted:Qty : 1 on 02/04/2025 by Berto Fritz MD Pacemaker [employer] CARDIAC RHYTHM AND HEART FAILURE - DIV M [id number] 05/03/2026 [id number] / [id number] / [place] [address] [place] [address] MEDICARE Advance Directives Documents on File Type Date Recorded Patient Gas Manager Expl anation Power of Senior Technologist 02/04/2025 9:02 AM POA fo r Health Care * Full Code (Latest Code Status on File) Date Activated Date Inactivated Comments 01/22/2025 9:29 AM 01/23/2025 3:14 PM Care Teams Box Press Operator Relationship Specialty Start Date End Date Mel Cristobal MD [address] [place], [place] [id number] PCP - General FAMILY PRACTICE 11/04/24
== END 2025-09-02 10:25 | disposition home or self-care (01) ==
PROVIDERS: PCP Family Medicine; Visit Provider Internal Medicine Endocrinology, Diabetes & Metabolism
DX: M81.0 Age-related osteoporosis without current pathological fracture (principal); E03.9 Hypothyroidism, unspecified
CPT/HCPCS: 36415; 84443